=== PATIENT | male | born 1955 | race Caucasian/White ===

== ENCOUNTER → 2017-11-14 11:29 | Outpatient (CLI) | payer OTHER, SELFPAY ==
--- NOTE | 2017-11-14 11:35 | XR_ITS ---
XR chest 2V HISTORY: Hemoptysis, cough ITS.REASON: BRONCHITIS, ORDERING PHYSICIAN: Ricky Mauricio MD PATIENT AGE: 62 years COMPARISON: 221 FINDINGS: The cardiomediastinal silhouette and pulmonary vascularity are within normal limits. This consolidation is present in the left upper lobe consistent with pneumonia. No obvious effusion. Right lung is clear. No acute bony anomalies. IMPRESSION: Left upper lobe pneumonia. Recommend follow until clear
== END ==
PROVIDERS: PCP Family Medicine; Visit Provider Family Medicine
DX: J20.9 Acute bronchitis, unspecified (principal); R04.2 Hemoptysis
CPT/HCPCS: 71046

== ENCOUNTER → 2017-11-18 12:08 | Outpatient (CLI) | payer OTHER, SELFPAY ==
[2017-11-18 12:31] LABS: Blood Urea Nitrogen 21 mg/dL (7-18); Creatinine,Serum 1.15 mg/dL (0.70-1.30); Estimated Glomerular Filt Rate 65 ml/min (>60); GFR (African American) 78 ML/MIN (>60)
--- NOTE | 2017-11-18 12:34 | CT_ITS ---
CT angio chest HISTORY: Hemoptysis, left upper lobe pneumonia ITS.REASON: PNEUMONIA,LEFT UPPER LOBE ORDERING PHYSICIAN: Jose Rodgers MD PATIENT AGE: 62 years COMPARISON: 11/14/2017, 11/26/2010 TECHNIQUE: Axial images obtained following the administration of 75 mL of Isovue 370 . Sagittal, and coronal reformatted images are also generated and reviewed. All CT scans at the facility use one or more dose reduction, viz: automated exposure control, ma/kV adjustment per patient size (including targeted exams where dose is matched to indication, i.e. head), or iterative reconstruction technique. FINDINGS: There are scattered small lymph nodes in the left aspect of the mediastinum and left hilum. These are nonspecific and may be reactive has a densely consolidated left upper lobe pneumonia. The nodes measure up to 1.8 x 1 cm in AP window on the left. No mediastinal or hilar mass evident. No evidence of pulmonary embolus. No aortic aneurysm or dissection apparent. Dense consolidation involving the left upper lobe consistent with pneumonia. No obvious cavitation. No central bronchial obstruction. This also involves the posterior aspect of the lingula. There is a small left pleural effusion. Right lung is clear. Coronary artery calcifications are present. Upper abdominal images are unremarkable. No acute bony anomalies. IMPRESSION: 1. Left upper lobe pneumonia. No abscess or cavitation. No central obstructing lesion. There are small mediastinal lymph nodes on the left and small left hilar nodes which may be reactive. 2. No evidence of pulmonary embolus or aortic aneurysm or dissection.
--- NOTE | 2017-11-18 12:56 | HMH.ITSHM ---
BLOOD PRESSURE MEDS
== END ==
PROVIDERS: Visit Provider Family Medicine
DX: J18.1 Lobar pneumonia, unspecified organism (principal)
CPT/HCPCS: 36415; 71275; 82565; 84520; Q9967

== ENCOUNTER → 2017-11-28 12:54 | Outpatient (CLI) | payer OTHER, SELFPAY ==
--- NOTE | 2017-11-28 13:04 | XR_ITS ---
XR chest 2V HISTORY: ITS.REASON: PNEUMONIA ORDERING PHYSICIAN: Jose Rodgers MD PATIENT AGE: 62 years COMPARISON: 11/14/2017 FINDINGS: Unremarkable cardiovascular structures. There is been moderate improvement in the left upper lobe infiltrate. There is some residual density noted in the perihilar region. Right lung is clear. No acute bony anomalies. IMPRESSION: Persistent but improving left upper lobe infiltrate
== END ==
PROVIDERS: PCP Family Medicine; Visit Provider Family Medicine
DX: J18.1 Lobar pneumonia, unspecified organism (principal)
CPT/HCPCS: 71046

== ENCOUNTER → 2017-12-12 07:13 | Outpatient (CLI) | payer OTHER, SELFPAY ==
--- NOTE | 2017-12-12 07:23 | CA_ITS ---
PROCEDURE: 2-D M-mode and color Doppler study INDICATIONS FOR THE TEST: Chest pain COPD+ Heart Murmur Tobacco Smoking Palpitations Fatigue Syncope Edema+ Hypertension+Diabetes Mellitus Rheumatic Fever SOB+MARIE Obesity+Hyperlipidemia Family History HD Additional History PATIENT INFORMATION HEIGHT: 73 WEIGHT:370 GENDER: Male B/P: 2-D/M-MODE INTERPRETATION: 2-D MEASUREMENTS OBSERVED VALUES IN CMS Right Ventricular Dimension (RVDd) 2.2 Interventricular Septum (Thickness)(IVsd) 1.5 Left Ventricular Internal Dimensions(LVIDd) 5.6 Left Ventricular Posterior Wall (Thickness)(LVPWd) 1.4 Aortic Root 3.8 Aortic Cusp Separation 2.3 Left Atrial Dimensions (LAD) 4.3 2D 1. Left atrium is mildly enlarged, left ventricle is normal size, mild concentric left ventricular hypertrophy, visually estimated ejection fraction 55% with no regional wall motion abnormality. 2. The right atrium and right ventricle are normal size and contractility. 3. The aortic valve is minimally thickened and fibrosed. 4. The mitral and tricuspid valve are grossly normal. 5. The pulmonic valve is poorly visualized. 6. No significant pericardial effusion noted. DOPPLER INTERROGATION: Doppler interrogation of the aortic, mitral and tricuspid valvular presence of mild mitral and tricuspid regurgitation, tricuspid regurgitation jet velocity is insufficient for calculation of the right ventricular systolic pressure, grade 1 diastolic dysfunction seen with tissue Doppler evidence of raised left atrial pressure. CONCLUSION: 1. Mildly enlarged left atrium, normal left ventricular size, mild concentric left ventricular hypertrophy, visually estimated ejection fraction 55% with no regional wall motion abnormality. Grade 1 diastolic dysfunction seen with tissue Doppler evidence of raised left atrial pressure. 2. Mild mitral and tricuspid regurgitation 3. No significant pericardial effusion noted.
== END ==
PROVIDERS: Family Provider Family Medicine; PCP Family Medicine; Visit Provider Family Medicine
DX: R53.1 Weakness (principal)
CPT/HCPCS: 93306

== ENCOUNTER → 2017-12-23 13:34 | Outpatient (CLI) | payer OTHER, SELFPAY | PROVIDERS: PCP Family Medicine; Visit Provider Family Medicine | DX: G47.30 Sleep apnea, unspecified (principal) | CPT/HCPCS: 95806 ==

== ENCOUNTER → 2017-12-29 10:06 | Outpatient (CLI) | payer OTHER, SELFPAY ==
[2017-12-29 12:02] LABS: Anion Gap 10.9 mEq/L (5-15); Blood Urea Nitrogen 15 mg/dL (7-18); Calcium 8.7 mg/dL (8.5-10.1); Carbon Dioxide 30 mmol/L (21.0-32.0); Chloride 103 mmol/L (98-107); Creatinine,Serum 0.99 mg/dL (0.70-1.30); Estimated Glomerular Filt Rate 77 ml/min (>60); GFR (African American) 93 ML/MIN (>60); Glucose 170 mg/dL (74-106); Potassium 3.9 mmoL/L (3.5-5.1); Sodium 140 mmol/L (136-145)
== END ==
PROVIDERS: Visit Provider Internal Medicine Cardiovascular Disease
DX: I25.10 Atherosclerotic heart disease of native coronary artery without angina pectoris (principal); E66.9 Obesity, unspecified; I10 Essential (primary) hypertension; R25.1 Tremor, unspecified; R53.83 Other fatigue; R60.0 Localized edema; R94.31 Abnormal electrocardiogram [ECG] [EKG]; Z79.890 Hormone replacement therapy; Z82.49 Family history of ischemic heart disease and other diseases of the circulatory system; Z86.718 Personal history of other venous thrombosis and embolism
CPT/HCPCS: 36415; 80048; 83880

== ENCOUNTER → 2018-01-05 10:27 | Outpatient (CLI) | payer OTHER, SELFPAY ==
[2018-01-05 12:05] LABS: Blood Urea Nitrogen 17 mg/dL (7-18); Calcium 8.4 mg/dL (8.5-10.1); Carbon Dioxide 28 mmol/L (21.0-32.0); Chloride 105 mmol/L (98-107); Creatinine,Serum 0.84 mg/dL (0.70-1.30); Estimated Glomerular Filt Rate 93 ml/min (>60); GFR (African American) 113 ML/MIN (>60); Glucose 135 mg/dL (74-106); Sodium 141 mmol/L (136-145)
== END ==
PROVIDERS: Physician Assistant; Family Provider Family Medicine; PCP Family Medicine; Visit Provider Internal Medicine Cardiovascular Disease
DX: I10 Essential (primary) hypertension (principal); R06.09 Other forms of dyspnea; R60.0 Localized edema
CPT/HCPCS: 36415; 80048; 83880

== ENCOUNTER → 2018-03-31 19:43 | Outpatient (CLI) | payer OTHER, SELFPAY | PROVIDERS: PCP Family Medicine; Visit Provider Nurse Practitioner Family | DX: G47.33 Obstructive sleep apnea (adult) (pediatric) (principal) | CPT/HCPCS: 95811 ==

== ENCOUNTER → 2018-04-28 10:17 | Outpatient (CLI) | payer OTHER, SELFPAY ==
[2018-04-28 12:38] LABS: Anion Gap 11.6 mEq/L (5-15); Blood Urea Nitrogen 30 mg/dL (7-18); Carbon Dioxide 29 mmol/L (21.0-32.0); Chloride 100 mmol/L (98-107); Estimated Glomerular Filt Rate 76 ml/min (>60); GFR (African American) 92 ML/MIN (>60); Glucose 103 mg/dL (74-106); Potassium 4.6 mmoL/L (3.5-5.1); Sodium 136 mmol/L (136-145)
== END ==
PROVIDERS: PCP Family Medicine; Visit Provider Internal Medicine Cardiovascular Disease
DX: R00.1 Bradycardia, unspecified (principal); I10 Essential (primary) hypertension; I51.9 Heart disease, unspecified; E66.01 Morbid (severe) obesity due to excess calories; G47.33 Obstructive sleep apnea (adult) (pediatric); Z86.718 Personal history of other venous thrombosis and embolism
CPT/HCPCS: 36415; 80048

== ENCOUNTER → 2018-06-26 15:12 | Outpatient (CLI) | payer OTHER, SELFPAY | PROVIDERS: Visit Provider Specialist | DX: G47.33 Obstructive sleep apnea (adult) (pediatric) (principal) | CPT/HCPCS: 94762 ==

== ENCOUNTER → 2018-07-31 14:42 | Outpatient (CLI) | payer OTHER, SELFPAY ==
--- NOTE | 2018-07-31 14:47 | NVE_ITS ---
Venous Exam Indications: 729.5 Pain in limb. Pt hurt right foot last day now has palpable knot mid medial right foot. IMPRESSIONS 1. No evidence of deep or superficial vein thrombosis involving the right lower extremity 2. 0.9 cm hypoechoic non-vascular nodule seen in area of patient's palpable complaint right foot. History: PMH: Pt on Coumadin. Deep vein thrombosis. Risk factors: Obese. Right lower extremity venous duplex evaluation. Doppler flow study including spectral analysis, color and dorado scale imaging. Location: Vascular laboratory. Patient status: Outpatient. CRITICAL FINDINGS - Reported to: Dr. Richmond - 07/31/2018 - 15:15 pm - Neg. for DVT Tables: Venous flow and imaging: + + + + Location Overall Flow properties + + + + Right common femoral Patent Normal phasicity; spontaneous; normal augmentation; compressible + + + + Right saphenofemoral Patent Compressible junction + + + + Right profunda femoral Patent Compressible + + + + Right femoral Patent Normal phasicity; spontaneous; normal augmentation; compressible + + + + Right greater saphenous Patent Normal phasicity; spontaneous; normal augmentation; compressible + + + + Right popliteal Patent Normal phasicity; spontaneous; normal augmentation; compressible + + + + Right posterior tibial Patent Compressible + + + + Right peroneal Difficult Compressible study + + + + Right gastrocnemius Patent Compressible + + + + Right soleal Patent Compressible + + + + (Report amended ) Electronically signed by: Otis Jeronimo [id number]
== END ==
PROVIDERS: PCP Family Medicine; Visit Provider Family Medicine
DX: R60.0 Localized edema (principal); Z86.718 Personal history of other venous thrombosis and embolism
CPT/HCPCS: 93971

== ENCOUNTER → 2018-10-27 10:21 | Outpatient (CLI) | payer OTHER, SELFPAY ==
[2018-10-27 11:21] LABS: INR 1.89 (0.9-1.1); Prothrombin Time 19.1 seconds (9.4-11.8)
[2018-10-27 11:47] LABS: Anion Gap 10.3 mEq/L (5-15); Blood Urea Nitrogen 19 mg/dL (7-18); Calcium 8.6 mg/dL (8.5-10.1); Carbon Dioxide 30 mmol/L (21.0-32.0); Chloride 100 mmol/L (98-107); Creatinine,Serum 1.03 mg/dL (0.70-1.30); Estimated Glomerular Filt Rate 73 ml/min (>60); GFR (African American) 89 ML/MIN (>60); Glucose 98 mg/dL (74-106); Potassium 4.3 mmoL/L (3.5-5.1); Sodium 136 mmol/L (136-145)
== END ==
PROVIDERS: Visit Provider Internal Medicine Cardiovascular Disease
DX: I51.89 Other ill-defined heart diseases (principal); Z86.718 Personal history of other venous thrombosis and embolism
CPT/HCPCS: 36415; 80048; 85610

== ENCOUNTER → 2020-05-09 06:48 | Outpatient (CLI) | payer OTHER, SELFPAY ==
--- NOTE | 2020-05-09 | CA_ITS ---
APPROVED REPORT Exam: Pharmacologic Technologist: Emilee Bateman, Ht: 6 ft 0 in Wt: 314 lbs BSA: 2.58 m2 Medical History Medications: Lisinopril,,,,, Furosemide (LASIX),,,,, Warfarin,,,,, SyMBICORT,,,,, Cymbalta,,,,, Celecoxib,,,,, MetaPROLOL,,,,, Testosterone,,,,, Potassium,,,,, Stress Test Details Test: LEXISCAN HR Resting HR: 62 bpm Max Heart Rate (APMHR): 158 bpm Max HR Achieved: 93 bpm Target HR (85% APMHR): 134 bpm % of APMHR: 58 Recovery HR: 72 bpm BP Resting BP: 152/83 mmHg Max BP: 166/77 mmHg Recovery BP: 149.0/77.0 mmHg ECG Resting ECG: Sinus Rhythm Clinical Exercise duration: 04:00 min Highest Stage Achieved: Exercise capacity: 1.0 METs Stress ECG Conclusion Lexiscan portion complete. Pt c/o shortness of breath during peak infusion. Symptoms: No CP (+)SOB during peak infusion. Resolved in recovery Arrhythmias/Ectopy: No ectopy ST-T Changes: Less than 1.5 mm Conclusion: Images to follow Electronically signed by : Curt Contreras, 05/09/2020 13:25:36
--- NOTE | 2020-05-09 06:49 | CA_ITS ---
APPROVED REPORT EXAM: Comprehensive 2D, Doppler, and color-flow Echocardiogram Development And Planning Engineer: Robina Finnegan RVT Ht: 6 ft 1 in Wt: 314lbs BSA: 2.61 BP: 148/70 mmHg Indications: soa,cp,copd,murmur,edema,obesity,syncope,palps,dm,htn tds-body habitus 2D Dimensions LVOT 2.85 cm (M/F) 1.5-2.5 M-Mode Dimensions RVDd 1.70 cm (0.9-2.6) LA Diam 4.08 cm (1.9-4.0) LVDd 6.44 cm (3.5-5.7) Ao Diam 3.97 cm (2.0-3.7) LVDs 4.43 cm (3.5-5.7) IVSd 2.01 cm (0.6-1.1) PWd 0.72 cm (0.6-1.1) EF (Teich) 57.90% FS 31.20% EDV (Teich) 211.50 mL ESV (Teich) 89.10 mL LV Diastology E Decel Time 220.00 (160-240 msec) E/A Ratio 0.7 MED E' 7.00 (< 7 cm/sec) E'/MED E' Ratio 7.21 (>14) LAT E' 10.50 (<10 cm/sec) E/LAT E' Ratio 4.81 (>14) Mitral Valve MV E Max Marcio. 50.00 (40-130 cm/s) MV A Velocity 73.00 (40-130 cm/s) E/A Ratio 0.69 MV Decel. Time 220.00 (160-240 ms) MV PHT 64.00 ms Pulmonary Valve PV Peak Velocity 108.00 (50-150 cm/s) Left Ventricle Left atrium is mildly enlarged, left ventricle is normal size, mild concentric left ventricular hypertrophy, visually estimated ejection fraction 55% with no regional wall motion abnormality, grade 1 diastolic dysfunction seen without tissue Doppler evidence of raise left atrial pressure. Right Ventricle Right atrium and right ventricle mildly enlarged with normal contractility. Aortic Valve Aortic valve is minimally thickened and fibrosed, there is no aortic stenosis or aortic insufficiency. Mitral Valve Mitral valve leaflets are minimally thickened, there is mild mitral regurgitation. Tricuspid Valve Tricuspid valve grossly normal, there is mild tricuspid regurgitation, tricuspid regurgitation jet velocity is inadequate for calculation of the right ventricular systolic pressure. Pulmonic Valve Pulmonic valve is poorly visualized. Great Vessels Aortic root is normal size. Pericardium No significant pericardial effusion noted. Conclusion 1. Mild biatrial alignment, normal left ventricular size, mild concentric left ventricular hypertrophy, visually estimated ejection fraction 55% with no regional wall motion abnormality, grade 1 diastolic dysfunction seen without tissue Doppler evidence of raise left atrial pressure. 2. Mildly enlarged right ventricle with normal contractility. 3. Mild mitral and tricuspid regurgitation. 4. No significant pericardial effusion noted. Electronically signed by : Curt Contreras, 05/09/2020 14:38:05
--- NOTE | 2020-05-09 07:01 | NM_ITS ---
APPROVED REPORT Exam: Nuclear Stress Test Indication: HTN, OBSITY, FM HX, FATIGUE, ABN EKG Patient Location: Outpatient Stress Tech: GUZMAN BAZZI [place] Tech:Marisa Hagen, ARRT RT(R)(N) Ht: 6 ft 1 in Wt: 300 lbs HR: 68 bpm BP: 152/83 mmHg BSA: 2.56 m2 BMI: 39.5 History: HTN, OBSITY, FM HX, FATIGUE, ABN EKG Procedure: Patient received a 0.4 mg of intravenous Lexiscan, resting heart rate 68 bpm, resting blood pressure 152/83 mmHg, with Lexiscan maximum heart rate achived was 88 bpm which is Less than 85 % of the maximum predicted heart rate and blood pressure was 166/77 mmHg. With Lexiscan, patient denied any complaint of chest pain. Electrocardiogram Resting electrocardiogram showed sinus rhythm, with Lexiscan there is less than 1.[address] segment depression noted from the baseline EKG. The EKG portion of the Lexiscan is nondiagnostic. Cardiac Stress and Resting SPECT Images: Cardiac Stress and Resting SPECT images were obtained using technetium 99m Myoview 32.9 mCi stress and 9.72 mCi at rest. Gated SPECT for analysis of segmental wall motion and calculation of the ejection fraction also done. Prone images were also obtained. Cardiac stress and resting SPECT images show uniform myocardial activity without segmental perfusion abnormality, computer derived ejection fraction is 54% with no regional wall motion abnormality, right ventricle is normal size and contractility. Conclusion: 1. The EKG portion of the Lexiscan is nondiagnostic. 2. No scintigraphic evidence of reversible ischemia seen, computer derived ejection fraction 54% with no regional wall motion abnormality, right ventricle is normal size and contractility. 3. Normal Lexiscan Myoview study. Electronically signed by : Curt Contreras, 05/09/2020 13:31:43
== END ==
PROVIDERS: PCP Family Medicine; Visit Provider Internal Medicine Cardiovascular Disease
DX: I25.10 Atherosclerotic heart disease of native coronary artery without angina pectoris (principal); R94.31 Abnormal electrocardiogram [ECG] [EKG]; E78.2 Mixed hyperlipidemia; I10 Essential (primary) hypertension; Z86.718 Personal history of other venous thrombosis and embolism
CPT/HCPCS: 78452; 93017; 93306; A9502; J2785

== ENCOUNTER → 2020-07-30 08:33 | Outpatient (CLI) | payer OTHER, SELFPAY | PROVIDERS: PCP Family Medicine; Visit Provider Nurse Practitioner Family | DX: G47.33 Obstructive sleep apnea (adult) (pediatric) (principal) | CPT/HCPCS: 94762 ==

== ENCOUNTER → 2020-09-11 10:54 | Outpatient (CLI) | payer OTHER, SELFPAY | PROVIDERS: PCP Family Medicine; Visit Provider Nurse Practitioner Family | DX: G47.33 Obstructive sleep apnea (adult) (pediatric) (principal) | CPT/HCPCS: 94762 ==

== ENCOUNTER → 2021-04-13 10:06 | Outpatient (CLI) | payer OTHER, SELFPAY | PROVIDERS: PCP Psychiatry & Neurology Sleep Medicine; Visit Provider Nurse Practitioner | DX: U07.1 COVID-19 (principal) | CPT/HCPCS: C9803; U0003; U0005 ==

== ENCOUNTER → 2021-04-24 19:59 | Outpatient (CLI) | payer OTHER, SELFPAY | LOC: SL 20:00 | PROVIDERS: PCP Family Medicine; Visit Provider Nurse Practitioner Family | DX: G47.33 Obstructive sleep apnea (adult) (pediatric) (principal) | CPT/HCPCS: 95811 ==

== ENCOUNTER → 2021-06-05 07:31 | Outpatient (CLI) | payer OTHER, SELFPAY ==
--- NOTE | 2021-06-05 07:38 | XR_ITS ---
FINAL REPORT CLINICAL HISTORY: COVID TESTING cough COMPARISON: 11/28/2017 FINDINGS: SINGLE VIEW CHEST The heart is normal in size. The mediastinum is unremarkable. The lungs are clear. There is no pneumothorax. IMPRESSION: No acute cardiopulmonary process. Reviewed, Interpreted and Dictated by Royal Evangelista III, MD Transcribed by Vonda Clarke Authenticated by Royal Evangelista III, MD on 06/05/2021 08:46:[address] [facility]
[2021-06-05 07:59] LABS: Basophils # 0.1 K/mm3 (0-0.2); Basophils % 2.9 % (0.1-2.0); Eosinophils # 0.3 K/mm3 (0.0-0.4); Eosinophils % 5.7 % (0.1-12.0); Hematocrit 53.2 % (42.0-52.0); Hemoglobin 17.2 g/dL (14.1-18.0); Lymphocytes # 0.8 K/mm3 (0.7-4.5); Mean Corpuscular HGB Conc 32.3 g/dL (31.8-35.4); Mean Corpuscular Hemoglobin 29.3 pg (27.0-31.2); Mean Corpuscular Volume 90.7 fl (80-94); Mean Platelet Volume 7.2 fl (7.4-10.4); Monocytes # 0.3 K/mm3 (0.1-1.0); Monocytes % 5.9 % (1.7-9.3); Neutrophils % 67.5 % (37.0-80.0); Platelet Count 305 K/mm3 (142-424); Red Blood Count 5.86 M/mm3 (4.60-6.20); Red Cell Distribution Width 14.7 % (11.5-17.5); White Blood Count 4.5 K/mm3 (4.8-10.8)
== END ==
PROVIDERS: PCP Nurse Practitioner; Visit Provider Nurse Practitioner
DX: Z20.822 Contact with and (suspected) exposure to COVID-19 (principal)
CPT/HCPCS: 36415; 71045; 85025; C9803; U0003; U0005

== ENCOUNTER → 2022-02-09 08:18 | Outpatient (CLI) | payer OTHER, SELFPAY ==
[2022-02-10 11:10] LABS: INR 2.44 (0.9-1.1); Prothrombin Time 25.1 seconds (10.1-12.5)
[2022-02-10 11:55] LABS: Hemoglobin A1C 6.5 % (4.0-6.0)
[2022-02-10 12:24] LABS: Alanine Aminotransferase 31 U/L (12-78); Albumin Level 3.7 g/dl (3.5-5.0); Albumin/Globulin Ratio 1.5 (1.1-1.8); Alkaline Phosphatase 113 U/L (38-126); Aspartate Amino Transferase 25 U/L (17-59); Bilirubin,Total 0.4 mg/dl (0.2-1.3); Blood Urea Nitrogen 21 mg/dl (9-20); Calcium 8.9 mg/dl (8.4-10.2); Carbon Dioxide 28 mmol/L (22.0-30.0); Chloride 100 mmol/L (98-107); Chol/HDL Ratio 3.3 (1-3.5); Cholesterol 149 mg/dl (140-200); Estimated Glomerular Filt Rate 114 ml/min (>60); GFR (African American) 137 ML/MIN (>60); Globulin 2.5 g/dL (1.3-3.2); Glucose 131 mg/dl (74-100); HDL Cholesterol 45 mg/dl (40-60); Sodium 137 mmol/L (136-145); Total Protein,Serum 6.2 g/dl (6.3-8.2); Triglycerides 107 mg/dl (30-150); VLDL Cholesterol 21 mg/dL (0-40)
[2022-02-10 12:35] LABS: Direct LDL Cholesterol 74.27 mg/dL (100-129)
[2022-02-10 12:37] LABS: 25-OH Vitamin D, Total 44.1 ng/mL (30-100)
[2022-02-10 12:52] LABS: Prostate Specific Ag Screen 0.2 ng/ml (0.0-4.0)
[2022-02-10 13:11] LABS: Vitamin B12 910 pg/mL (239-931)
[2022-02-11 08:19] LABS: Testosterone,Total 131 ng/dL (264-916)
== END ==
LOC: LAB.DROPOF 02-10 11:18
PROVIDERS: PCP Nurse Practitioner; Visit Provider Nurse Practitioner
DX: I10 Essential (primary) hypertension (principal); E34.9 Endocrine disorder, unspecified; E78.2 Mixed hyperlipidemia; E55.9 Vitamin D deficiency, unspecified; E53.8 Deficiency of other specified B group vitamins; E66.01 Morbid (severe) obesity due to excess calories; Z68.42 Body mass index [BMI] 45.0-49.9, adult; Z86.718 Personal history of other venous thrombosis and embolism; Z12.5 Encounter for screening for malignant neoplasm of prostate
CPT/HCPCS: 80053; 80061; 82306; 82607; 83036; 84403; 85610; G0103

== ENCOUNTER → 2022-02-10 08:18 | Outpatient (CLI) | payer OTHER, SELFPAY | PROVIDERS: PCP Nurse Practitioner; Visit Provider Nurse Practitioner | DX: I10 Essential (primary) hypertension (principal); E78.5 Hyperlipidemia, unspecified; E53.8 Deficiency of other specified B group vitamins; E66.9 Obesity, unspecified; Z68.42 Body mass index [BMI] 45.0-49.9, adult; Z12.5 Encounter for screening for malignant neoplasm of prostate ==

== ENCOUNTER → 2022-05-11 23:00 | Outpatient (CLI) | payer OTHER, SELFPAY | PROVIDERS: PCP Family Medicine; Visit Provider Family Medicine | DX: Z79.01 Long term (current) use of anticoagulants (principal) ==

== ENCOUNTER → 2022-10-18 08:53 | Outpatient (CLI) | payer OTHER, SELFPAY ==
[2022-10-18 18:57] LABS: Alanine Aminotransferase 25 U/L (12-78); Albumin Level 3.9 g/dl (3.5-5.0); Albumin/Globulin Ratio 1.4 (1.1-1.8); Alkaline Phosphatase 102 U/L (38-126); Anion Gap 11.1 mEq/L (5-15); Aspartate Amino Transferase 27 U/L (17-59); Bilirubin,Total 0.9 mg/dl (0.2-1.3); Blood Urea Nitrogen 19 mg/dl (9-20); Calcium 8.8 mg/dl (8.4-10.2); Carbon Dioxide 28 mmol/L (22.0-30.0); Chloride 102 mmol/L (98-107); Chol/HDL Ratio 3.8 (1-3.5); Cholesterol 137 mg/dl (140-200); Estimated Glomerular Filt Rate 113 ml/min (>60); GFR (African American) 137 ML/MIN (>60); Globulin 2.7 g/dL (1.3-3.2); Glucose 95 mg/dl (74-100); HDL Cholesterol 36 mg/dl (40-60); Potassium 4.1 mmoL/L (3.5-5.1); Sodium 137 mmol/L (136-145); Total Protein,Serum 6.6 g/dl (6.3-8.2); Triglycerides 127 mg/dl (30-150); VLDL Cholesterol 25 mg/dL (0-40)
[2022-10-18 19:08] LABS: Direct LDL Cholesterol 75.93 mg/dL (100-129)
[2022-10-18 19:27] LABS: Thyroid Stimulating Hormone 1.52 uIU/mL (0.465-4.68)
== END ==
LOC: LAB.DROPOF 10-19 06:43
PROVIDERS: PCP Nurse Practitioner; Visit Provider Nurse Practitioner
DX: E11.9 Type 2 diabetes mellitus without complications (principal); I10 Essential (primary) hypertension; Z79.84 Long term (current) use of oral hypoglycemic drugs
CPT/HCPCS: 80053; 80061; 84443

== ENCOUNTER 2023-05-03 20:38 | Outpatient (CLI) | payer OTHER, SELFPAY ==
[2023-05-03 19:23] LABS: Chloride 100 mmol/L (98-107); Sodium 137 mmol/L (136-145)
[2023-05-03 19:24] LABS: Potassium 3.7 mmoL/L (3.5-5.1)
[2023-05-03 19:26] LABS: Alanine Aminotransferase 38 U/L (12-78); Anion Gap 9.7 mEq/L (5-15); Aspartate Amino Transferase 37 U/L (17-59); Blood Urea Nitrogen 20 mg/dl (9-20); Carbon Dioxide 31 mmol/L (22.0-30.0); Estimated Glomerular Filt Rate 97 ml/min (>60); GFR (African American) 117 ML/MIN (>60)
[2023-05-03 19:27] LABS: Albumin Level 3.8 g/dl (3.5-5.0); Albumin/Globulin Ratio 1.4 (1.1-1.8); Alkaline Phosphatase 89 U/L (38-126); Bilirubin,Total 0.3 mg/dl (0.2-1.3); Calcium 8.9 mg/dl (8.4-10.2); Globulin 2.7 g/dL (1.3-3.2); Glucose 83 mg/dl (74-100); Total Protein,Serum 6.5 g/dl (6.3-8.2)
== END 2023-05-03 23:59 ==
LOC: LAB.DROPOF 20:38
PROVIDERS: PCP Family Medicine; Visit Provider Family Medicine
DX: I10 Essential (primary) hypertension (principal); Z87.891 Personal history of nicotine dependence
CPT/HCPCS: 80053

== ENCOUNTER 2023-07-19 18:45 | Outpatient (CLI) | payer OTHER, SELFPAY ==
[2023-07-19 20:00] LABS: Alanine Aminotransferase 37 U/L (12-78); Albumin Level 3.8 g/dl (3.5-5.0); Albumin/Globulin Ratio 1.5 (1.1-1.8); Alkaline Phosphatase 95 U/L (38-126); Anion Gap 9.9 mEq/L (5-15); Aspartate Amino Transferase 84 U/L (17-59); Bilirubin,Total 0.6 mg/dl (0.2-1.3); Blood Urea Nitrogen 21 mg/dl (9-20); Calcium 9.2 mg/dl (8.4-10.2); Carbon Dioxide 30 mmol/L (22.0-30.0); Chloride 105 mmol/L (98-107); Chol/HDL Ratio 3.3 (1-3.5); Cholesterol 166 mg/dl (140-200); Estimated Glomerular Filt Rate 135 ml/min (>60); GFR (African American) 163 ML/MIN (>60); Globulin 2.6 g/dL (1.3-3.2); Glucose 112 mg/dl (74-100); HDL Cholesterol 51 mg/dl (40-60); Potassium 3.9 mmoL/L (3.5-5.1); Sodium 141 mmol/L (136-145); Total Protein,Serum 6.4 g/dl (6.3-8.2); Triglycerides 77 mg/dl (30-150); VLDL Cholesterol 15 mg/dL (0-40)
[2023-07-19 20:12] LABS: Direct LDL Cholesterol 69.59 mg/dL (100-129); Hemoglobin A1C 6.3 % (4.0-6.0)
[2023-07-19 20:31] LABS: Creatinine,Urine Random 146 mg/dL (Not Estab.)
[2023-07-19 20:32] LABS: Prostate Specific Ag Screen 0.2 ng/ml (0.0-4.0); Thyroid Stimulating Hormone 1.34 uIU/mL (0.465-4.68)
[2023-07-19 20:33] LABS: Microalbumin/Creatinine Ratio 4.4
[2023-07-19 20:51] LABS: Vitamin B12 660 pg/mL (239-931)
== END 2023-07-19 23:59 | disposition home or self-care (01) ==
PROVIDERS: PCP Nurse Practitioner; Visit Provider Nurse Practitioner
DX: E11.9 Type 2 diabetes mellitus without complications (principal); E66.01 Morbid (severe) obesity due to excess calories; Z79.01 Long term (current) use of anticoagulants; E55.9 Vitamin D deficiency, unspecified; E53.8 Deficiency of other specified B group vitamins; E78.2 Mixed hyperlipidemia; I10 Essential (primary) hypertension; Z86.718 Personal history of other venous thrombosis and embolism; Z12.5 Encounter for screening for malignant neoplasm of prostate; Z51.81 Encounter for therapeutic drug level monitoring; Z79.899 Other long term (current) drug therapy
CPT/HCPCS: 80053; 80061; 82043; 82306; 82570; 82607; 83036; 84443; G0103

== ENCOUNTER 2023-08-15 11:01 | Outpatient (CLI) | payer BC, SELFPAY | END 2023-08-15 23:59 | disposition home or self-care (01) | LOC: LAB.DROPOF 08-17 11:01 | PROVIDERS: PCP Nurse Practitioner; Visit Provider Nurse Practitioner | DX: E11.621 Type 2 diabetes mellitus with foot ulcer (principal); L97.519 Non-pressure chronic ulcer of other part of right foot with unspecified severity; B95.2 Enterococcus as the cause of diseases classified elsewhere | CPT/HCPCS: 87070; 87077; 87186; 87205 ==

== ENCOUNTER 2023-10-03 08:06 | Outpatient (CLI) | payer BC, SELFPAY ==
--- NOTE | 2023-10-03 08:08 | US_ITS ---
FINAL REPORT CLINICAL HISTORY: BILATERAL LE EDEMA,DECREASED SENESATION,EX SMOKER,HTN,DM,WOUND 2ND RIGHT DIGIT,OBESITY,DISCOLARTION BILATERAL FEET/ANKLES FINDINGS: ANKLE-BRACHIAL PRESSURE INDICES Pressure indices are as follows: RIGHT LOWER EXTREMITY: Ankle-brachial pressure index: 1.1 Comments: Normal LEFT LOWER EXTREMITY: Ankle-brachial pressure index: 1.1 Comments: Normal IMPRESSION: No evidence of significant obstructive peripheral vascular disease of the lower extremities Reviewed, Interpreted and Dictated by Royal Evangelista III, MD Transcribed by Yoly Okeefe Authenticated and . [facility]
== END 2023-10-03 23:59 | disposition home or self-care (01) ==
LOC: RT 08:08
PROVIDERS: PCP Family Medicine; Visit Provider Podiatrist
DX: R09.89 Other specified symptoms and signs involving the circulatory and respiratory systems (principal)
CPT/HCPCS: 93923

== ENCOUNTER 2023-11-22 10:24 | Outpatient (CLI) | payer BC, SELFPAY ==
[2023-11-22 10:47] LABS: Basophils # 0.1 K/mm3 (0-0.2); Basophils % 1.2 % (0.1-2.0); Eosinophils # 0.3 K/mm3 (0.0-0.4); Eosinophils % 5.7 % (0.1-12.0); Hemoglobin 15.5 g/dL (14.1-18.0); Lymphocytes # 1.2 K/mm3 (0.7-4.5); Lymphocytes % 20.6 % (10-50); Mean Corpuscular HGB Conc 31.6 g/dL (31.8-35.4); Mean Corpuscular Hemoglobin 28.6 pg (27.0-31.2); Mean Corpuscular Volume 90.3 fl (80-94); Mean Platelet Volume 7.5 fl (7.4-10.4); Monocytes # 0.2 K/mm3 (0.1-1.0); Neutrophils # 3.9 K/mm3 (1.8-7.8); Neutrophils % 68.5 % (37.0-80.0); Platelet Count 301 K/mm3 (142-424); Red Blood Count 5.43 M/mm3 (4.60-6.20); Red Cell Distribution Width 15.2 % (11.5-17.5); White Blood Count 5.7 K/mm3 (4.8-10.8)
[2023-11-22 11:10] LABS: Hemoglobin A1C 5.8 % (4.0-6.0)
[2023-11-22 11:44] LABS: Erythrocyte Sedimentation Rate 19 mm/hr (0-20)
[2023-11-22 11:48] LABS: Chloride 106 mmol/L (98-107); Sodium 139 mmol/L (136-145)
[2023-11-22 11:49] LABS: Potassium 4.3 mmoL/L (3.5-5.1)
[2023-11-22 11:51] LABS: Alanine Aminotransferase 30 U/L (12-78); Albumin/Globulin Ratio 1.4 (1.1-1.8); Alkaline Phosphatase 75 U/L (38-126); Anion Gap 9.3 mEq/L (5-15); Aspartate Amino Transferase 34 U/L (17-59); Bilirubin,Total 0.7 mg/dl (0.2-1.3); Blood Urea Nitrogen 18 mg/dl (9-20); Carbon Dioxide 28 mmol/L (22.0-30.0); Estimated Glomerular Filt Rate 135 ml/min (>60); GFR (African American) 163 ML/MIN (>60); Globulin 2.8 g/dL (1.3-3.2); Total Protein,Serum 6.8 g/dl (6.3-8.2)
[2023-11-22 11:52] LABS: Calcium 8.6 mg/dl (8.4-10.2); Glucose 96 mg/dl (74-100)
[2023-11-22 11:57] LABS: C-Reactive Protein 13.3 mg/L (0-4)
== END 2023-11-22 23:59 | disposition home or self-care (01) ==
LOC: LAB 10:25
PROVIDERS: PCP Family Medicine; Visit Provider Podiatrist
DX: R60.9 Edema, unspecified (principal)
CPT/HCPCS: 36415; 80053; 83036; 85025; 85651; 86140

== ENCOUNTER 2024-01-11 09:30 | Outpatient (CLI) | payer BC, SELFPAY | END 2024-01-11 23:59 | disposition home or self-care (01) | LOC: LAB.DROPOF 01-12 09:31 | PROVIDERS: PCP Family Medicine; Visit Provider Podiatrist | DX: L60.0 Ingrowing nail (principal); L03.031 Cellulitis of right toe | CPT/HCPCS: 87070; 87077; 87186; 87205 ==

== ENCOUNTER 2024-01-17 09:30 | Outpatient (CLI) | payer BC, SELFPAY ==
[2024-01-17 19:16] LABS: Albumin Level 4.2 g/dl (3.5-5.0); Chloride 104 mmol/L (98-107); Sodium 139 mmol/L (136-145)
[2024-01-17 19:19] LABS: Alanine Aminotransferase 31 U/L (12-78); Albumin/Globulin Ratio 1.4 (1.1-1.8); Alkaline Phosphatase 86 U/L (38-126); Aspartate Amino Transferase 28 U/L (17-59); Bilirubin,Total 0.7 mg/dl (0.2-1.3); Blood Urea Nitrogen 19 mg/dl (9-20); Carbon Dioxide 29 mmol/L (22.0-30.0); Cholesterol 167 mg/dl (140-200); Estimated Glomerular Filt Rate 113 ml/min (>60); GFR (African American) 137 ML/MIN (>60); Globulin 2.9 g/dL (1.3-3.2); Total Protein,Serum 7.1 g/dl (6.3-8.2); Triglycerides 79 mg/dl (30-150); VLDL Cholesterol 16 mg/dL (0-40)
[2024-01-17 19:20] LABS: Calcium 9.2 mg/dl (8.4-10.2); Chol/HDL Ratio 3.3 (1-3.5); Glucose 82 mg/dl (74-100); HDL Cholesterol 51 mg/dl (40-60)
[2024-01-17 19:31] LABS: Direct LDL Cholesterol 76.53 mg/dL (100-129)
[2024-01-17 19:40] LABS: 25-OH Vitamin D, Total 52.5 ng/mL (30-100)
== END 2024-01-17 23:59 | disposition home or self-care (01) ==
LOC: LAB.DROPOF 01-19 11:39
PROVIDERS: PCP Nurse Practitioner; Visit Provider Nurse Practitioner
DX: E55.9 Vitamin D deficiency, unspecified (principal); E11.65 Type 2 diabetes mellitus with hyperglycemia; Z79.85 Long-term (current) use of injectable non-insulin antidiabetic drugs; Z79.01 Long term (current) use of anticoagulants; E78.5 Hyperlipidemia, unspecified
CPT/HCPCS: 80053; 80061; 82306

== ENCOUNTER 2024-03-19 06:06 | Outpatient (CLI) | payer BC, SELFPAY ==
--- NOTE | 2024-03-19 | CA_ITS ---
APPROVED REPORT Exam: Pharmacologic Technologist: Emilee Wilkerson Ht: 6 ft 3 in Wt: 342 lbs BSA: 2.76 m2 HR: 68 bpm BP: 162/90 mmHg Stress Test Details Test: Lexiscan Reason for pharmacologic stress test: physical limitation. HR Resting HR: 68 bpm Max Heart Rate (APMHR): 154.569981 bpm Max HR Achieved: 87 bpm Target HR (85% APMHR): 130.098081 bpm % of APMHR: 56.49 Recovery HR: 83 bpm BP Resting BP: 162.0/90.0 mmHg Max BP: 157.0/86.0 mmHg Recovery BP: 157.0/86.0 mmHg ECG Resting ECG: NSR Stress ECG Conclusion Symptoms: No CP Arrhythmias/Ectopy: None ST-T Changes: <1.5mm ST Segment changes. Conclusion: Non-Diagnostic Lexiscan stress test. Electronically signed by : Pat Ha MD 03/19/2024 11:39:37
--- NOTE | 2024-03-19 06:12 | NM_ITS ---
APPROVED REPORT Exam: Nuclear Stress Test Indication: htn, diabetes, hyperlipidemia, fm hx, pre-op Patient Location: Outpatient Stress Tech: Emilee Bateman [place] Tech:ROMMEL Vaughan RT (R)(N)(M) Ht: 6 ft 1 in Wt: 342 lbs HR: 68 bpm BP: 162/90 mmHg BSA: 2.70 m2 TID: 1.19 BMI: 45.1 History: htn, diabetes, hyperlipidemia, fm hx, pre-op Procedure: Patient received 0.0 mg of intravenous Lexiscan, resting heart rate 68 bpm, resting blood pressure 162/90 mmHg, with Lexiscan maximum heart rate achieved was 87 bpm which is % of the maximum predicted heart rate and blood pressure was 154/92 mmHg. With Lexiscan, patient denied any complaint of chest pain. Cardiac Stress and Resting SPECT Images: Cardiac Stress and Resting SPECT images were obtained using technetium 99m Myoview 29.4 mCi stress and 10.20 mCi at rest. The patient could not lie on his abdomen. Therefore, prone stress imaging could not be performed. This may affect the diagnostic interpretation of the study findings. Resting and stress imaging in supine positions demonstrate a medium sized, mild, partially reversible perfusion defect in the basal inferior LV wall. Gated imaging demonstrates normal global and regional LV systolic function. LVEF is calculated at 58%. Conclusion: Medium sized, mild, partially reversible perfusion defect in the basal inferior LV wall. Findings are suggestive of partial reversible ischemia. Gated imaging demonstrates normal global and regional LV systolic function. LVEF is calculated at 58%. Electronically signed by : Pat Ha MD 03/19/2024 11:41:14
[2024-03-19] MEDS: SODIUM CHLORIDE 0.9% 10ML SYR (RAD ONLY) 10 ML IV ×2 (06:30→08:30)
[2024-03-19] MEDS: REGADENOSON 0.4MG/5ML SYRINGE 0.4 MG IV (08:30)
[2024-03-19] MEDS: ISOTOPE MYOVIEW (PER STUDY) 1 DOSE IV (11:26)
== END 2024-03-19 23:59 | disposition home or self-care (01) ==
LOC: RAD 06:07
PROVIDERS: PCP Psychiatry & Neurology Sleep Medicine; Visit Provider Physician Assistant
DX: I25.10 Atherosclerotic heart disease of native coronary artery without angina pectoris (principal)
CPT/HCPCS: 78452; 93017; 93018; A9502; J2785

== ENCOUNTER 2024-04-03 08:37 | Day surgery (SDC) | payer BC, SELFPAY ==
[2024-04-03] VITALS (10 sets, daily range): BP systolic 114–153; BP diastolic 60–83; PULSE 60–77; RESP 16–20; O2SAT 95–97; BMI 43.6
--- NOTE | 2024-04-03 07:26 | IR_ITS ---
APPROVED REPORT Patient Location: Outpatient PROCEDURES Left heart catheterization Left ventriculogram Selective coronary angiogram INDICATION Preoperative evaluation, Abnormal Myoview, Angina pectoris Informed consent was obtained prior to the procedure. COMPLICATIONS None Estimated Blood Loss: Less than 10 mls TECHNIQUE One percent lidocaine used to anesthetize the right anterior aspect of the wrist. The right radial artery was accessed via the Seldinger technique. A 6 Pashto sheath was placed in the right radial artery. 2.5 mg of Verapamil, 800 mcg of nitroglycerin, 1mg Lidocaine and 5000 U Heparin were given through the arterial sheath. The papa catheter was also used to perform left heart catheterization, left ventriculogram and selective coronary angiogram. At the end of the procedure the sheath was removed good hemostasis was achieved using Traclet band, patient was transferred to the postop holding area in stable condition. ANGIOGRAPHIC RESULTS The left main artery Normal The left anterior descending artery Mild 10% luminal regularities The circumflex artery Dominant with 20% stenosis in the first obtuse marginal artery The right coronary artery Normal The EARL ventriculogram reveals Horizontal heart with normal ejection fraction estimate 65% The left ventricular end-diastolic pressure 20 to 25 mmHg IMPRESSION Mild nonflow limiting coronary disease as described above Normal ejection fraction Elevated LVEDP consistent diastolic dysfunction PLAN 1. Patient is alone acceptable risk to proceed with elective orthopedic surgery 2. Risk factor modification 3. Recommend exercise weight loss 4. Recommend sleep study Electronically signed by : Dale Sauer MD 04/03/2024 13:49:43
[2024-04-03 09:15] LABS: Basophils % 0.7 % (0.1-2.0); Eosinophils # 0.3 K/mm3 (0.0-0.4); Eosinophils % 4.6 % (0.1-12.0); Hematocrit 47.1 % (42.0-52.0); Hemoglobin 15.7 g/dL (14.1-18.0); Lymphocytes # 1.1 K/mm3 (0.7-4.5); Lymphocytes % 19.1 % (10-50); Mean Corpuscular HGB Conc 33.3 g/dL (31.8-35.4); Mean Corpuscular Volume 87.1 fl (80-94); Mean Platelet Volume 8.3 fl (7.4-10.4); Monocytes # 0.3 K/mm3 (0.1-1.0); Monocytes % 5.3 % (1.7-9.3); Neutrophils % 70.1 % (37.0-80.0); Platelet Count 249 K/mm3 (142-424); Red Blood Count 5.41 M/mm3 (4.60-6.20); Red Cell Distribution Width 13.8 % (11.5-17.5); White Blood Count 5.7 K/mm3 (4.8-10.8)
--- NOTE | 2024-04-03 09:15 | SUR.PREOP ---
Notified lab for need of INR drawn
[2024-04-03 09:42] LABS: INR 0.96 (0.9-1.1); Prothrombin Time 10.8 seconds (10.1-12.5)
[2024-04-03 10:03] LABS: Chloride 103 mmol/L (98-107); Sodium 133 mmol/L (136-145)
[2024-04-03 10:06] LABS: Blood Urea Nitrogen 19 mg/dl (9-20); Calcium 8.8 mg/dl (8.4-10.2); Carbon Dioxide 26 mmol/L (22.0-30.0); Creatinine Clearance Estimated 84 mL/min (50-200); Estimated Glomerular Filt Rate 135 ml/min (>60); GFR (African American) 163 ML/MIN (>60); Glucose 100 mg/dl (74-100)
[2024-04-03] MEDS: NITROGLYCERIN 800MCG/8ML SYR (CATH LAB) 800 MCG IA (10:32)
[2024-04-03] MEDS: HEPARIN 1,000 UNITS/ML 10ML VIAL (CATH LAB) 10000 UNIT IV (10:32)
[2024-04-03] MEDS: VERAPAMIL 2.5MG/ML 2ML VIAL 2.5 MG IV (10:32)
[2024-04-03] MEDS: HEPARIN 1,000 UNITS/500ML NS (CATH LAB) 3000 UNIT IV (10:32)
[2024-04-03] MEDS: LIDOCAINE 1% 10ML MDV 20 ML IJ (10:33)
[2024-04-03] MEDS: diphenhydrAMINE 50MG/ML VIAL 50 MG IV (10:33)
[2024-04-03] MEDS: MIDAZOLAM HCL 1MG/ML 5ML VIAL 1 MG IV (10:52)
[2024-04-03] MEDS: FENTANYL 100MCG/2ML VIAL 50 MCG IV (10:52)
[2024-04-03] MEDS: IOPAMIDOL-370 (76%);100ML BOTTLE 85 ML IV (12:39)
== END 2024-04-03 13:39 | disposition home or self-care (01) ==
PROVIDERS: PCP Family Medicine; Visit Provider Internal Medicine
DX: I25.118 Atherosclerotic heart disease of native coronary artery with other forms of angina pectoris (principal); I10 Essential (primary) hypertension; E11.9 Type 2 diabetes mellitus without complications; R94.39 Abnormal result of other cardiovascular function study; E55.9 Vitamin D deficiency, unspecified; Z79.85 Long-term (current) use of injectable non-insulin antidiabetic drugs; Z79.899 Other long term (current) drug therapy; Z86.718 Personal history of other venous thrombosis and embolism; Z79.01 Long term (current) use of anticoagulants
CPT/HCPCS: 36415; 80048; 85025; 85610; 93458; 99152; C1725; C1769; J1200; J1644; J2250; J3010; Q9967

== ENCOUNTER 2024-10-29 10:37 | Outpatient (CLI) | payer BC, MEDICARE, SELFPAY ==
--- OUTSIDE RECORDS SUMMARY | 2024-09-28 09:00 | XMS_ITS | Encounter Summary ---
Author Organization [facility] Address [address] [place] [address] Care Team Providers Care Still Operator Name Role Phone Phan Rodgers MD Primary Care Provider [phone] Francisco Bolton MD Unavailable [phone] Elen Taylor MD Unavailable [phone] Reason for Visit * Reason Comments Follow-up Encounter Details Date Type Department Care Team (Late st Contact Info) Description 09/28/2024 9:00 AM EDT Office Visit [facility] [address] [address] Tiesha Saleem NP [address] [place] [address] Primary osteoarthritis of right knee (Primary Dx) Social History Tobacco Use Types Packs/Day Years Used Date Smoking Tobacco: Former Cigarettes Q uit: 12/03/1997 Smokeless Tobacco: Never Tobacco Cessation:Counseling Given: Not Answered Alcohol Use Standard Drinks/Week Comments No 0 (1 standard drink = 0.6 oz pur e alcohol) Sexually Active Control Partners Comments Yes Abstinence Female Sex and Gender Information Value Date Recorded Sex Assigned at Not on file Legal Sex Male 1:21 AM EDT Gender Identity Not on file Sexual Orientation Not on file documented as of this encounter Last Filed Vital Signs Vital Sign Reading Time Taken Comments Blood Pressure - - Pulse - - Temperature - - Respiratory Rate - - Oxygen Saturation - - Inhaled Oxygen Concentration - - Weight 154.2 kg (340 lb) 09/28/2024 8:46 AM EDT Height 185.4 cm (6' 1 ) 09/28/2024 8:46 AM EDT Body Mass Index 44.86 09/28/2024 8:46 AM EDT documented in this encounter Progress Notes * Tiesha Saleem NP - 09/28/2024 9:00 AM EDTAssociated Order(s): Large Joint Injection/Arthrocentesis: R knee Post-Procedure Diagnose(s): Primary osteoarthritis of right knee Large Joint Injection/Arthrocentesis: R knee on 09/28/2024 9:00 AM Indications: pain Details: 22 G needle, superolateral approach Medications: 2 mL BUPivacaine HCl 0.5 % (5 mg/mL); 40 mg triamcinolone acetonide 40 mg/mL Outcome: tolerated well, no immediate complications Procedure, treatment alternatives, risks and benefits explained, specific risks discussed. Consent was given by the patient. Immediately prior to procedure a time out was called to verify the correctpatient, procedure, equipment, data support analyst and site/side marked as required. Patient was prepped and draped in the usual sterile fashion. * Tiesha Saleem NP - 09/28/2024 9:00 AM EDT Images from the original note were not included. [address] [phone] [place], [place] [phone] [place], [place] Eusebio Chun 1955 Chief Complaint Patient presents with Right Knee - Follow-up Subjective: Eusebio Chun is a 69 y.o. male is presenting today for repeat evaluation of right knee OA. History left total knee arthroplasty 04-19-24. This is doing well. Reports relief with previous cortisone injection of the knee on last OV 06-22-24 Relief has worn off and pain has returned, especially with increased physical activity. 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 The injections help keep him functional. Objective: Review of Systems Constitutional: Negative. Respiratory: Negative. Cardiovascular: Negative. Gastrointestinal: Negative. Musculoskeletal: Positive for joint pain. Skin: Negative. Body mass index is 44.86 kg/m??. On physical examination the patient is alert and oriented x3. Appropriate mood for the conversation. Well-developed and well-nourished in appearance. Gait examination reveals no obvious abnormalities. Skin of bilateral upper and lower extremities with no obvious rash or lesions. Motor control intact of the bilateral upper and lower extremities. No evidence of obvious lymphedema of bilateral lowerextremities. Respiratory rate is normal by clinical examination. Pulse rate is normal by peripheral pulse examination. Examination of the right knee shows that it is stable to varus/valgus stressing. Normal anterior/posterior drawer testing. Normal Sharron testing. Normal Pihl testing. There is tenderness to palpation over the medial joint line, as well as the patellofemoral joint. The skin is intact. Imaging: None today. Assessment and Plan: Diagnoses and all orders for this visit: Primary osteoarthritis of right knee - Large Joint Injection/Arthrocentesis: R knee PLAN: Recommended to continue conservative management Discussed options Keep follow-up as scheduled to determine response. If good symptomatic relief is achieved, patient may schedule for repeat injection in 3 months if needed. Patient agreeable and all questions answered. A right knee corticosteroid injection was given today. Under sterile conditions and from a superolateral approach, a local anesthetic and steroid were injected into the knee joint. This was well tolerated by the patient. Sterile dressings were applied. There were no obvious immediate complications after the procedure. I discussed with the patient about monitoring for pain, as well as the standard expectation after an injection. Patient was educated on the signs or symptoms of complication and will monitor for these. documented in this encounter Plan of Treatment Upcoming Encounters Date Type Department Care Team (Late st Contact Info) Description 01/04/2025 8:00 AM EDT Office Visit [facility] [address] [address] Tiesha Saleem NP [address] [place] [address] 10/08/2025 8:00 AM EDT Office Visit [facility] [address] [place], [place] [id number] Francisco Bolton MD 651 [facility] Building [address] [place] [address] documented as of this encounter Procedures Procedure Name Priority Date/Time Associated Diagnosis Comments LA ARTHROCENTESIS ASPIR&/INJ MAJOR JT/BURSA W/O US Routine 09/28/2024 9:00 AM EDT Primary osteoarthritis of right knee documented in this encounter Results * LA ARTHROCENTESIS ASPIR&/INJ MAJOR JT/BURSA W/O US (09/28/2024 9:00 AM EDT) Narrative [facility] - 09/28/2024 9:00 AM EDT Tiesha Saleem NP 09/28/2024 9:01 AM Large Joint Injection/Arthrocentesis: R knee on 09/28/2024 9:00 AM Indications: pain Details: 22 G needle, superolateral approach Medications: 2 mL BUPivacaine HCl 0.5 % (5 mg/mL); 40 mg triamcinolone acetonide 40 mg/mL Outcome: tolerated well, no immediate complications Procedure, treatment alternatives, risks and benefits explained, specific risks discussed. Consent was given by the patient. Immediately prior to procedure a time out was called to verify the correct patient, procedure, equipment, data support analyst and site/side marked as required. Patient was prepped and draped in the usual sterile fashion. us Tiesha Saleem NP PROCEDURE/MINOR SURGICAL ORDERAB LES Final Result [facility] documented in this encounter Visit Diagnoses Diagnosis Primary osteoarthritis of right knee- Primary Primary localized osteoarthrosis, lower leg documented in this encounter Administered Medications Inactive Administered Medications - up to 1 most recent administrations Medication Order MAR Action Action Date Dose Rate Site BUPivacaine HCl (MARCAINE/SENSORCAINE) 0.5 % (5 mg/mL) injection 2 mL 2 mL, Intra-articular, ONCE PRN, 1 dose, Starting on Tue09/28/24 at 0900, Until Tue09/28/24 at 0900, Dx: 1. Primary osteoarthritis of right kneeIndications:Primary osteoarthritis of right knee Given 09/28/2024 9:00 AM EDT 2 mL Right Knee triamcinolone acetonide (KENALOG-40) injection 40 mg 40 mg, Intra-articular, ONCE PRN, 1 dose, Starting on Tue09/28/24 at 0900, Until Tue09/28/24 at 0900, Dx: 1. Primary osteoarthritis of right kneeIndications:Primary osteoarthritis of right knee Given 09/28/2024 9:00 AM EDT 40 mg Right Knee documented in this encounter Care Teams Still Operator Relationship Specialty Start Date End Date Phan Rodgers MD [address] [place] [address] [address] [place] [address] PCP - General 01/19/11 Francisco Bolton MD [address] [address] Internal Medicine-Rheumatolog y 02/20/18 Elen Taylor MD [address] [place] [address] Consulting Physician Internal Medicine-Endocrinolo gy, Diabetes & Metabolism 06/01/22 documented as of this encounter
--- OUTSIDE RECORDS SUMMARY | 2024-10-08 08:00 | XMS_ITS | Encounter Summary ---
Author Organization [facility] [place] [address] Care Team Providers Care Patrol Commander Name Role Phone Phan Rodgers MD Primary Care Provider Francisco Bolton MD Unavailable [phone] Elen Taylor MD Unavailable [phone] Reason for Visit * Reason Comments Follow-up 9 mthsPrimary osteoa rthritis of both kneesChronic deep vein thrombosis (DVT) of distal vein of right lower extremity (HCC)Radicular pain of lumbosacral regionTherapeutic drug monitoring Encounter Details Date Type Department Care Team (Latest Contact Info) Description 10/08/2024 8:00 AM EDT Office Visit [facility] [address] [place] [address] Francisco Bolton MD 651 [facility] [address] [place] [address] Primary osteoarthritis of both knees (Primary Dx); Radicular pain of lumbosacral region; Chronic deep vein thrombosis (DVT) of distal vein of right lower extremity (HCC); Therapeutic drug monitoring Discharge Disposition: Home or Self Care Social History Tobacco Use Types Packs/Day Years Used Date Smoking Tobacco: Former Cigarettes Q uit: 12/03/1997 Smokeless Tobacco: Never Alcohol Use Standard Drinks/Week Comments No 0 [...] Sign Reading Time Taken Comments Blood Pressure 137/79 10/08/2024 7:53 AM EDT Pulse 73 10/08/2024 7:53 AM EDT Temperature - - Respiratory Rate 16 10/08/2024 7:53 AM EDT Oxygen Saturation - - Inhaled Oxygen Concentration - - Weight 161.9 kg (357 lb) 10/08/2024 7:53 AM EDT Height - - Body Mass Index 47.1 09/28/2024 8:46 AM EDT documented in this encounter Ordered Prescriptions Prescription Sig Dispense Quantity Refills Last Filled Start Date End Date gentamicin (GARAMYCIN) 0.1 % Top Cream Apply topically 3 times daily. 30 g 10/08/2024 diclofenac (VOLTAREN) 1 % Top Gel Apply 4 g topically 4 times daily. 5 Each 5 10/08/2024 DULoxetine (CYMBALTA) 60 mg Oral Capsule, Delayed Release(E.C.)Indicat ions:Primary osteoarthritis of both knees Take 1 Capsule by mouth daily. 30 Capsule 3 10/08/2024 documented in this encounter Discharge Disposition Disposition Code Departure Means Destination Home or Self Care documented in this encounter Progress Notes * Francisco Bolton MD - 10/08/2024 8:00 AM EDT Subjective Subjective: Patient ID: Eusebio Chun is a 69 y.o. male. Chief Complaint Patient presents with Follow-up 9 mths Primary osteoarthritis of both knees Chronic deep vein thrombosis (DVT) of distal vein of right lower extremity (HCC) Radicular pain of lumbosacral region Therapeutic drug monitoring Follow-up Osteoarthritis Back Pain Hip Pain Abstract Mr. Chun had right total hip arthroplasty on 12/22/22. The right hip pain has resolved. He had lefttotal knee arthroplasty on 04/19/2024. The left knee pain has dramatically improved. He is also noted decreased pain at the right knee. He currently rates the pain at the right and left knee as mild intensity. He previously rated the pain as moderate-severe intensity. Walking does worsen the knee pain. He recently had right intra-articular steroid injection from orthopedic surgeon. The intra-articular steroid injections do reduce the pain transiently. He continues to use Cymbalta daily. He feelsthe Cymbalta has reduced the overall joint pain. Voltaren gel also helps. He previously lost 104 pounds. He regained about 80 pounds total. He previously lost a significant amount of weight using Saxenda. However, his insurance is no longer covering Saxenda. He is now using Mounjaro. He previously stopped Celebrex but restarted the medication due to the severity of the knee pain. Mr. Chun previously had swelling and erythema at the dorsum of the right foot and at the 2nd and 3rd toes of the right foot. His clinical pathologist prescribed topical gentamicin 0.1% cream which did help clear the redness and swelling. He recently noticed return of the erythema and swelling at the right foot 2nd and 3rd toes. He is requesting a refill of gentamicin cream. Patients past medical, family and social histories were reviewed and updated. There were no changesexcept as noted. Review of Systems See attached Multi-Dimensional Health Assessment Questionnaire for full Review of Systems Objective Objective: Vitals: 10/08/24 0753 BP: 137/79 Pulse: 73 Resp: 16 Weight: (!) 357 lb (161.9 kg) Body mass index is 47.1 kg/m??. Physical Exam Constitutional: Appearance: He is well-developed. Musculoskeletal: Comments: Heberden's nodes noted at fingers of both hands. Crepitus right knee. Scar at the left knee. No synovitis. Skin: Findings: No rash. Comments: Erythema at right 2nd and 3rd toes. Minimal amount of clear weeping from the dorsum of the right third toe. No obvious ulcers. Neurological: Mental Status: He is alert. Psychiatric: Thought Content: Thought content normal. CBC Lab Results Component Value Date WBC 4.8 12/10/2022 HGB 14.7 12/10/2022 HCT 44.4 12/10/2022 MCV 85.9 12/10/2022 PLT 219 12/10/2022 CMP Lab Results Component Value Date GLU 107 (H) 12/10/2022 CALCIUM 9.1 12/10/2022 ALBUMIN 3.9 12/10/2022 PROT 6.5 12/10/2022 NA 139 12/10/2022 K 4.2 12/10/2022 CO2 25 12/10/2022 CL 103 12/10/2022 BUN 20 12/10/2022 CREATININE 0.83 12/10/2022 ALKPHOS 83 12/10/2022 ALT 22 12/10/2022 AST 18 12/10/2022 LABBILI 0.5 12/10/2022 Assessment and Plan: Eusebio was seen today for follow-up. The OA is better but still active. Exam showed degenerative joint changes. Exam showed erythema, swelling, and clear drainage at right 2nd and 3rd toes. The most recent lab testing showed normal liver enzymes and kidney function. Diagnoses and all orders for this visit: Primary osteoarthritis of both knees - Active. Previously improved with weight loss, Voltaren gel and Cymbalta. Left total hip arthroplasty on 04/19/2024. He has noted significant reduction of the knee pain. - Intra-articular steroid injections initially helped significantly. - Dr. Vazquez previously requested he lose 100 pounds. - Mr. Chun previously lost enough weight to allow him to have the total knee replacements. - Mr. Chun was concerned about time away from work if he has knee surgery. - He previously used Celebrex 200 mg BID. - He was able to reduce Celebrex to 200 mg QD after starting Cymbalta. - Right total hip arthroplasty on 12/22/22. - Left total knee arthroplasty on 04/19/2024. - The OA is improved but still active. - He is currently using Celebrex 200 mg daily. - Continue Cymbalta 60 mg daily. - Continue Tylenol rapid release 1000 mg twice daily. He rarely uses Tylenol. - Continue Voltaren gel 4 g 4 times daily. - Continue Salonpas lidocaine patches. - Previously discussed acupuncture. - Previously discussed physical therapy. Mr. Chun wants to wait. - CBC and CMP 2 weeks before follow-up visit. - Follow-up in 12 months. - His insurance refused to cover cost of Euflexxa. - Mr. Chun previously paid for the cost of Euflexxa [id number]. - We again discussed my concern about using Celebrex while using Coumadin. Right buttock pain - Improved. Concerning for referred pain. - No improvement with previous right hip intra-articular steroid injection. - Salonpas OTC lidocaine patches PRN. - Continue Cymbalta 60 mg daily. - Continue Tylenol rapid release 1000 mg twice daily. He rarely uses Tylenol. - Continue Voltaren gel 4 g 4 times daily. - If the pain returns we will refer to the [facility]. Right foot cellulitis - Previously resolved with topical gentamicin from podiatry. - Mr. Chun requested another prescription of gentamicin cream. - We discussed my concern for the area of cellulitis progressing to involve underlying structures including the bone. - I prescribed gentamicin 0.1% 3 times daily to the affected area. - If the area is not significantly improved within 5-7 days he will return to podiatry. Chronic deep vein thrombosis (DVT) of distal vein of right lower extremity (HCC) - Developed right leg DVT during his early 50s. - Using lifelong Coumadin. Morbid obesity due to excess calories (HCC) - Active problem. - He previously lost 104 pounds but regained a significant amount. - He is trying to lose additional weight. Therapeutic drug monitoring - Currently using Coumadin and Celebrex. - He previously used Celebrex 200 mg BID. - He stopped Celebrex but developed severe knee pain. - He restarted Celebrex at 200 mg QD. - He will continue to lose weight. - We will see if we can stop Celebrex next visit. No follow-ups on file. documented in this encounter Plan of Treatment Upcoming Encounters Date Type Department Care Team (Late st Contact Info) Description 01/04/2025 8:00 AM EDT Office Visit [facility] [address] [address] Tiesha Saleem NP [address] [place] [address] 10/08/2025 8:00 AM EDT Office Visit [facility] [address] [place] [address] [place] [address] Francisco Bolton MD 651 [facility] [address] [place] [address] documented as of this encounter Visit Diagnoses Diagnosis Primary osteoarthritis of both knees- Primary Primary localized osteoarthrosis, lower leg Radicular pain of lumbosacral region Thoracic or lumbosacral neuritis or radiculitis, unspecified Chronic deep vein thrombosis (DVT) of distal vein of right lower extremity (HCC) Therapeutic drug monitoring Encounter for therapeutic drug monitoring documented in this encounter Discontinued Medications Medication Sig Discontinue Reason Start Date End Da te diclofenac (VOLTAREN) 1 % Top Gel Apply 4 g topically 4 times daily. Reorder 11/08/2022 10/08/2024 DULoxetine (CYMBALTA) 60 mg Oral Capsule, Delayed Release(E.C.)Indications: Primary osteoarthritis of both knees Take 1 Capsule by mouth once daily. Reorder 02/07/2024 10/08/2024 documented as of this encounter Historical Medications * This list may reflect changes made after this encounter. MOUNJARO 7.5 mg/0.5 mL SubQ Pen Injector INJECT 7.5 MG UNDER THE SKIN ONCE WEEKLY. 10/01/2024 added in this encounter Care Teams Patrol Commander Relationship Specialty Start Date End Date Phan Rodgers MD [address] [place] [address] [address] [place] [address] PCP - General 01/19/11 Francisco Bolton MD 651 [facility] [address] [place] [address] Internal Medicine-Rheumatolog y 02/20/18 Elen Taylor MD [address] [place] [address] Consulting Physician Internal Medicine-Endocrinolo gy, Diabetes & Metabolism 06/01/22 documented as of this encounter
--- NOTE | 2024-10-29 10:41 | XR_ITS ---
FINAL REPORT CLINICAL HISTORY: Right ankle pain and swelling FINDINGS: AP, oblique, and lateral views of the right ankle were obtained. There is an age-indeterminate fracture of the tip of the medial malleolus. There is degenerative joint disease. There is diffuse soft tissue e edema. IMPRESSION: Age-indeterminate fracture of the tip of the medial malleolus. Consider MRI. Reviewed, Interpreted and Dictated by Rosey Kumar MD Transcribed by SUZANNA Delacruz Authenticated and [facility]
--- NOTE | 2024-10-29 10:41 | XR_ITS ---
FINAL REPORT CLINICAL HISTORY: Right Foot pian and swelling FINDINGS: AP, oblique and lateral views of the right foot were obtained. There is no acute fracture or dislocation. There is mild multijoint degenerative disease. There is mild soft tissue edema of the midfoot and forefoot. IMPRESSION: Mild multijoint degenerative findings without acute osseous abnormality. Reviewed, Interpreted and Dictated by Rosey Kumar MD Transcribed by SUZANNA Delacruz Authenticated and [facility]
--- OUTSIDE RECORDS SUMMARY | 2024-10-29 11:10 | XMS_ITS | Clinical Summary ---
Author Organization [facility] Address [address] [place] [address] Care Team Providers Care Popcorn Vendor Name Role Phone Phan Rodgers MD Primary Care Provider [phone] Allergies Active Allergy Reactions Criticality Noted Date Comments Metformin Other (See Comments) 04/11/2024 Stomach cramping Medications metoprolol succinate (TOPROL) 25 mg XL tablet Take 25 mg by mouth nightly at bedtime. Active furosemide (LASIX) 80 mg tablet Take 80 mg by mouth daily. Active losartan (COZAAR) 25 mg Tablet Take 25 mg by mouth daily. Active semaglutide (Ozempic) 1 mg/dose (4 mg/3 mL) Pen Injector 1 mg by Subcutaneous route once weekly. Takes on Sundays Active rosuvastatin (CRESTOR) 10 mg Tablet Take 10 mg by mouth daily. Active warfarin (COUMADIN) 5 mg tablet Take 10 mg by mouth every other day. Alternates dose Active warfarin (COUMADIN) 5 mg tablet Take 7.5 mg by mouth every other day. Alternates dose Active gabapentin (NEURONTIN) 300 mg capsule Take 300 mg by mouth nightly at bedtime. Active DULoxetine (CYMBALTA) 60 mg Capsule, Delayed Release(E.C.) Take 60 mg by mouth daily. Active Diclofenac Sodium (VOLTAREN) 1 % Gel Apply topically 4 times daily. Active celecoxib (CELEBREX PO) Take by mouth daily. Active docusate sodium (COLACE) 100 mg capsule Take 1 Capsule (100 mg) by mouth 2 times daily as needed for Constipation. 30 Capsule 04/19/2024 2:45 PM EST Active Active Problems Problem Noted Date Diagnosed Date Primary osteoarthritis of left knee 04/11/2024 Family History Medical History Relation Name Comments Heart Problems Father CHF Heart Problems Maternal Grandfather Heart Problems Paternal Grandfather Anesthesia Complications Neg Hx Relation Name Status Comments Father Maternal Grandfather Paternal Grandfather Social History Tobacco Use Types Packs/Day Years Used Date Smoking Tobacco: Former Cigarettes 1 25 1 974 - 1999 Smokeless Tobacco: Never Tobacco Cessation:Counseling Given: Not Answered Alcohol Use Standard Drinks/Week Comments Not Currently 0 (1 standard drink = 0.6 oz pur e alcohol) Quit ~1981 Sex and Gender Information Value Date Recorded Sex Assigned at Male 04/13/2024 10:13 AM EST Legal Sex Male 3:05 PM EDT Gender Identity Male 04/13/2024 10:13 AM EST Sexual Orientation Not on file Last Filed Vital Signs Vital Sign Reading Time Taken Comments Blood Pressure 161/78 04/19/2024 1:00 PM EST Pulse 83 04/19/2024 1:00 PM EST Temperature 36.1 C (96.9 F) 04/19/2024 12:45 PM EST Respiratory Rate 16 04/19/2024 1:00 PM EST Oxygen Saturation 95% 04/19/2024 1:00 PM EST Inhaled Oxygen Concentration - - Weight 156.5 kg (345 lb 0.3 oz) 04/19/2024 8:48 AM EST Height 185.4 cm (6' 1 ) 04/19/2024 8:48 AM EST Body Mass Index 45.52 04/19/2024 8:48 AM EST Plan of Treatment Health Maintenance Due Date Last Done Comments Cologuard 1957 Colonoscopy 1957 Colorectal Cancer Screening 1957 FIT 1957 Lipid Monitoring 1974 Hepatitis C Virus (HCV) Screening 1978 Pneumococcal Vaccine: 50+ Ye ars (1 of 1 - PCV) 07/16/2007 Zoster-RZV(Shingrix) (1 of 2) 07/16/2007 RSV Vaccines (1 - Risk 60-74 years 1-dose series) 2017 Fall Risk Assessment 2022 COVID-19 Vaccine ( season) 2023, 12/02/2020 Advance Care Planning 04/04/2024 BMI Counseling 04/04/2024 Depression Screening 04/04/2024 Influenza Vaccination (#1) 2024 Tetanus Vaccination (Every 10 Years) 06/09/202611/2016 Medical Devices Implanted Type Area Application Programmer Analyst Device Identifier Shelf Expiration Date Model / Serial / Lot Attune Tib Base Afxm Fxd Bear Sz 7 - [id number] Implanted:Qty: 1 on 04/19/2024 by Giles Robledo MD at [facility] Left: Knee [employer] \T\ [employer] [id number] 05/04/2032 [id number] / / [id number] Attune Pat Med Estefany 35mm - [id number] Implanted:Qty: 1 on 04/19/2024 by Giles Robledo MD at [facility] Left: Knee [employer] \T\ [employer] [id number] 03/03/2029 [id number] / / [id number] Attune Fem Pcr Sz 7 Lt - [id number] Implanted:Qty: 1 on 04/19/2024 by Giles Robledo MD at [facility] Left: Knee [employer] \T\ [employer] [id number] 02/01/2034 [id number] / / [id number] Attune Tib Ins Fxd Bearing Med Stbld Sz 7 Lt 5mm - [id number] Implanted:Qty: 1 on 04/19/2024 by Giles Robledo MD at [facility] Left: Knee [employer] \T\ [employer] [id number] 01/02/2032 [id number] / / [id number] Cement Bone Simplex Hv - [id number] Implanted:Qty: 1 on 04/19/2024 by Giles Robledo MD at [facility] Left: Knee [employer] [id number] 09/01/2025 [id number] / / [id number] Knee Attune Fb Cementless - [id number] Implanted:Qty: 1 on 04/19/2024 by Giles Robledo MD at [facility] Left: Knee [employer] \T\ [employer] [id number] / / Insurance [facility] MEDIC[facility] Member Subscriber Plan / Payer (Ef fective 2022-Present) Name:Eusebio Ford Aidan Member ID:[id number] Relation to Subscriber:Self Name:Eusebio Ford Aidan Subscriber ID:[id number] Payer ID:[id number] Group ID:Not on file Type:Medicare Address: [facility] [place] [address] [facility] [place] [address] [place] [place] [address] Care Teams Popcorn Vendor Relationship Specialty Start Date End Date Phan Rodgers MD [address] [facility] [address] [place] [address] PCP - General Neurology 04/13/24
--- OUTSIDE RECORDS SUMMARY | 2024-10-29 11:10 | XMS_ITS | Clinical Summary ---
Author Organization [facility] Address [address] [place] [address] Phone Care Team Providers Care Medical Assistant Prn Name Role Phone Phan Rodgers MD Primary Care Provider [phone] Francisco Bolton MD Unavailable [phone] Elen Taylor MD Unavailable Allergies Active Allergy Reactions Criticality Noted Date Comments Metformin Nausea Only,Other (S ee Comments) 07/30/2022 Abdominal cramps Stomach cramping Medications fUROsemide (LASIX) 80 mg Oral Tablet Take 80 mg by mouth every 12 hours. Active metoprolol (LOPRESSOR) 25 mg tablet Take 12.5 mg by mouth 2 times daily. 1/2 pill twice a day Active gabapentin (NEURONTIN) 300 mg Oral Capsule Take 300 mg by mouth nightly. Active rosuvastatin (CRESTOR) 10 mg Oral Tablet Take 10 mg by mouth daily. Active warfarin (COUMADIN) 5 mg Oral TabletIndications: WILL STOP FOR SX 12/14/22 Indications: WILL STOP FOR SX 12/14/22 3 Active cyanocobalamin 100 mcg Oral Tablet Take 100 mcg by mouth daily. Active MOUNJARO 7.5 mg/0.5 mL SubQ Pen Injector INJECT 7.5 MG UNDER THE SKIN ONCE WEEKLY. 5 Active DULoxetine (CYMBALTA) 60 mg Oral Capsule, Delayed Release(E.C.)Indic ations:Primary osteoarthritis of both knees Take 1 Capsule by mouth daily. 30 Capsule 3 5 Active diclofenac (VOLTAREN) 1 % Top Gel Apply 4 g topically 4 times daily. 5 Each 5 5 Active gentamicin (GARAMYCIN) 0.1 % Top Cream Apply topically 3 times daily. 30 g 5 Active Active Problems Problem Noted Date Diagnosed Date Primary osteoarthritis of left knee 04/17/2024 Right hip pain 12/15/2022 Primary osteoarthritis of right hip 10/27/2022 Overview (10/27/2022): Added automatically from request for surgery [id number] Prediabetes 06/01/2022 Assessment & Plan (11/09/2022 12:44 PM EDT): Glycemic control has improved with weight loss. The patient has lost 12% of the total body weight. Rybelsus at current dose regimen has been shown to have very limited impact on weight control. I feel that the patient would benefit from weight loss surgery in light of multiple comorbidities related to morbid obesity. He was advised to have evaluation for possible weight loss surgery before considering knee replacement. Different aspects of weight loss surgery (gastric bypass versus gastric sleeve) were discussed with the patient in detail. I explained the benefits versus risks of bariatric surgery and the impact on sustained weight loss. The patient is aware of health benefits of weight loss surgery such as average 20 to 30% total body weight loss, improvement of metabolic parameters and favorable effect on comorbidities including arthritis. Assessment & Plan (07/30/2022 12:23 PM EDT): The patient has lost 5% of the total body weight on Saxenda. He is to continue with dietary intervention along with Saxenda. Unfortunately he could not tolerate metformin. We will monitor the metabolic parameters Assessment & Plan (06/01/2022 12:16 PM EST): The importance of balanced caloric intake and increased physical activity to reduce the risk of developing of type 2 diabetes mellitus was emphasized to the patient. We will decide on either GLP-1 RA or metformin trial depending on insurance coverage Hypogonadism male 06/01/2022 Assessment & Plan (11/09/2022 12:42 PM EDT): The patient has been off testosterone replacement due to lack of perceived benefit. Assessment & Plan (07/30/2022 12:22 PM EDT): Under care of PCP Dr. Rodgers Assessment & Plan (06/01/2022 12:15 PM EST): Under care of PCP Dr. Rodgers Open displaced fracture of distal phalanx of lef t thumb 12/31/2021 Overview (12/31/2021): Added automatically from request for surgery [id number] Radicular pain of lumbosacral region 12/10/2021 Primary osteoarthritis of both knees 02/22/2018 Chronic deep vein thrombosis (DVT) of distal vein of right lower extremity 02/22/2018 Class 3 severe obesity due t o excess calories with serious comorbidity and body mass index (BMI) of 40.0 to 44.9 in adult 02/22/2018 Assessment & Plan (11/09/2022 12:45 PM EDT): Unfortunately weight loss medications are not covered under his current insurance plan. He is to continue with a lifestyle intervention. He was provided with the samples of Rybelsus since he is convinced that it has helped with weight loss. Assessment & Plan (07/30/2022 12:22 PM EDT): The patient is to continue Saxenda samples at 1.2 mg a day. He is to continue with dietary intervention. We will try to submit prescription for Saxenda for approval Assessment & Plan (06/01/2022 12:18 PM EST): The importance of increased physical activity and balanced caloric intake to facilitate weight loss was emphasized to the patient. The patient was provided with dietary instructions. He is to keep a detailed food diary. He was advised to see dietitian. Different aspects of weight loss surgery (gastric bypass versus gastric sleeve) were discussed with the patient in detail. I explained the benefits versus risks of bariatric surgery and the impact on sustained weight loss. The patient is aware of health benefits of weight loss surgery such as average 20 to 25% total body weight loss, improvement of metabolic parameters and favorable effect on comorbidities. I feel that he would benefit from being evaluated at bariatric center. In the meantime he was provided with a list of different weight loss medications to contact the insurance company regarding the coverage. We will consider metformin trial if GLP-1 RA are not covered. 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 06/15/2016 Encounters Date Type Department Care Team Description 10/08/2024 8:00 AM EDT Office Visit [facility] [address] [facility] [address] [place] [address] Francisco Bolton MD Primary osteoarthritis of both knees (Primary Dx); Radicular pain of lumbosacral region; Chronic deep vein thrombosis (DVT) of distal vein of right lower extremity (HCC); Therapeutic drug monitoring Discharge Disposition: Home or Self Care 09/28/2024 9:00 AM EDT Office Visit [facility] [address] [facility] [address] [place] [address] Tiesha Saleem NP Primary osteoarthritis of right knee (Primary Dx) 08/24/2024 9:00 AM EDT Office Visit [facility] [address] [facility] [address] [place] [address] Tiesha Saleem NP S/P total knee arthroplasty, left (Primary Dx) from Last 3 Months Immunizations Immunization Administration Dates Next Due Tdap 06/09/2016 Surgical History Surgery Date Site/Laterality Comments FINGER AMPUTATION 06/15/2016 Finger/Left LEFT LONG FINGER REPAIR AMPUTATION WITH V-Y FLAP; Surgeon: Josue Tejada MD; Location: [facility]; Service: Hand SKIN GRAFT 06/15/2016 Finger/Left Surgeon: Josue Tejada MD; Location: [facility]; Service: Hand FINGER NAIL SURGERY 09/23/2016 Left LEFT LONG FINGER EXCISION OF THE NAIL AND NAILBED REMNANT; Surgeon: Josue Tejada MD; Location: [facility]; Service: Hand FINGER FRACTURE SURGERY 01/05/2022 Hand/Wrist/Left left thumb exploration irrigation and debridement of open fracture open reduction internal fixation distal phalanx; Surgeon: Antelmo Stock MD; Location: [facility] MAIN OR; Service: Hand Medical devices from this surgery are in the Medical Devices section. HIP ARTHROPLASTY 12/22/2022 Hip/Right RIGHT TOTAL HIP REPLACEMENT; Surgeon: Dale Vazquez MD; Location: [facility]; Service: Orthopedics Medical devices from this surgery are in the Medical Devices section. Medical History Medical History Date Comments Prediabetes Hypertension Chronic bronchitis (HCC) no inha lers Pneumonia hx of DVT (deep venous thrombosis) (HCC) rt leg Kidney stones at age 29 History of snoring Blood circulation, collateral le gs Arthritis knees Sleep apnea BIPAP Hyperlipidemia Diabetes mellitus (HCC) Depression Clotting disorder Family History Medical History Relation Name Comments Heart Disease Father hear valve rep lacement Heart Failure Father Cancer Mother breast Anesth Problems Neg Hx Relation Name Status Comments Father Mother Alive Social History Tobacco Use Types Packs/Day Years [...] on file Sexual Orientation Not on file Obstetrics History Last Filed Vital Signs Vital Sign Reading Time Taken Comments Blood Pressure 137/79 10/08/2024 7:53 AM EDT Pulse 73 10/08/2024 7:53 AM EDT Temperature 35.8 C (96.4 F) 12/22/2022 3:39 PM EDT Respiratory Rate 16 10/08/2024 7:53 AM EDT Oxygen Saturation 97% 12/22/2022 3:39 PM EDT Inhaled Oxygen Concentration - - Weight 161.9 kg (357 lb) 10/08/2024 7:53 AM EDT Height 185.4 cm (6' 1 ) 09/28/2024 8:46 AM EDT Body Mass Index 47.1 09/28/2024 8:46 AM EDT Plan of Treatment Upcoming Encounters Date Type Department Care Team (Late st Contact Info) Description 01/04/2025 8:00 AM EDT Office Visit [facility] [address] [place], [place] [id number] Tiesha Saleem NP [address] [place], [place] [id number] 10/08/2025 8:00 AM EDT Office Visit [facility] [address] [facility] [address] [place], [place] [id number] Francisco Bolton MD [address] [facility] [address] [place], [place] [id number] Health Maintenance Due Date Last Done Comments Annual Wellness Exam 1960 Hepatitis C Screening 07/16/1975 Cologuard 2002 Colon Cancer Screening 2002 Colonoscopy 2002 FIT 2002 Sigmoidoscopy 2002 Virtual Colonography 2002 Zoster (1 of 2) 07/16/2007 RSV or 60+ (1 - Ris k 60-74 years 1-dose series) 2017 Pneumococcal Vaccine 50+ (2 of 2 - PCV) 11/22/2018 11/22/2017 AAA Screening 2022 COVID-19 Vaccine (3 - 2023-2 5 season) 2023 12/30/2020, 12/02/2020 Influenza Vaccine (#1) 2024 DTaP/TDaP/Td (2 - Td or Tdap) 06/09/2026 06/09/2016 Hepatitis B Vaccine Aged Out No longe r eligible based on patient's age to complete this topic Meningococcal B Vaccine Aged Out No l onger eligible based on patient's age to complete this topic Medical Devices Implanted Type Area Writer Device Identifier Shelf Expiration Date Model / Serial / Lot Wire David [id number] [employer] [facility] Dbl End Troc Pnt - [id number] Implanted:Qty: 2 on 01/05/2022 by Antelmo Stock MD at [facility] MICROAIRE SURG INSTR 05/30/2025 1600-022 / / [id number] Cup Actb Trident Ii Sz-E 52mm Clstr Scr 5hl Tritan Hap Prim - [id number] Implanted:Qty: 1 on 12/22/2022 by Dale Vazquez MD at [facility] Right: Hip DENNIS:[employer] [id number] 11/16/2027 702-04-52E / / [id number] Insert O Degree Trident X 3 36mm Code E - [id number] Implanted:Qty: 1 on 12/22/2022 by Dale Vazquez MD at [facility] Right: Hip [employer]IS[employer] [id number] 09/28/2027 723-00-36E / / [id number] Stem Sz6 45mm Ofst Accolade Ii Prim Recon Ti Plasm [employer] - [id number] Implanted:Qty: 1 on 12/22/2022 by Dale Vazquez MD at [facility] Right: Hip [employer] [id number] 11/22/2027 [id number] / / [id number] Head Fem V-40 36mm +0mm Nk Biolox Delta Cerm Tapr Prim Mod - [id number] Implanted:Qty: 1 on 12/22/2022 by Dale Vazquez MD at [facility] Right: Hip [employer] [id number] 07/01/2027 6570-0-136 / / [id number] Procedures Procedure Name Priority Date/Time Associated Diagnosis Comments ME ARTHROCENTESIS ASPIR&/INJ MAJOR JT/BURSA W/O US Routine 09/28/2024 9:00 AM EDT Primary osteoarthritis of right knee from Last 3 Months Results * ME ARTHROCENTESIS ASPIR&/INJ MAJOR JT/BURSA W/O US (09/28/2024 [...] to verify the correct patient, procedure, equipment, operations support professionals and site/side marked as required. Patient was prepped and draped in the usual sterile fashion. us Tiesha Saleem NP PROCEDURE/MINOR SURGICAL ORDERAB LES Final Result ORTHOCINCY from Last 3 Months Insurance [facility] [place]IC[place] [address] [facility] [employer] PPO MEDICARE [place] PART A AND B [place] [id number] [employer] PPO [place] [address] Care Teams Medical Assistant Prn Relationship Specialty Start Date End Date Phan Rodgers MD [address] [facility] [address] [place] [id number] PCP - General 01/19/11 Francisco Bolton MD [address] [address] Internal Medicine-Rheumatolog y 02/20/18 Elen Taylor MD [address] [place] [address] Consulting Physician Internal Medicine-Endocrinolo gy, Diabetes & Metabolism 06/01/22
== END 2024-10-29 23:59 | disposition home or self-care (01) ==
PROVIDERS: PCP Family Medicine; Visit Provider Nurse Practitioner
DX: M19.071 Primary osteoarthritis, right ankle and foot (principal); M84.471A Pathological fracture, right ankle, initial encounter for fracture
CPT/HCPCS: 73610; 73630

== ENCOUNTER 2024-11-15 16:18 | Outpatient (CLI) | payer BC, MEDICARE, SELFPAY ==
--- OUTSIDE RECORDS SUMMARY | 2024-09-28 09:00 | XMS_ITS | Encounter Summary ---
Author Organization [facility] Address [address] [place] [address] Care Team Providers Care Finance Broker Name Role Phone Phan Rodgers MD Primary Care Provider [phone] Francisco Bolton MD Unavailable [phone] Elen Taylor MD Unavailable [phone] Reason for Visit * Reason Comments Follow-up Encounter Details Date Type Department Care Team (Late st Contact Info) Description 09/28/2024 9:00 AM EDT Office Visit [facility] [address] [address] Tiesha Saleem NP [address] [place] [address] Primary osteoarthritis of right knee (Primary Dx) [...] called to verify the correctpatient, procedure, equipment, web support engineer and site/side marked as required. Patient was prepped and draped in the usual sterile fashion. * Tiesha Saleem NP - 09/28/2024 9:00 AM EDT Images from the original note were not included. [address] [phone]) [place], [place] [phone]) [place], [place] Eusebio Chun 1955 Chief Complaint Patient [...] with increased physical activity. 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 [...] anterior/posterior drawer testing. Normal Sharron testing. Normal Phil testing. There is tenderness to palpation over [...] Office Visit [facility] [address] [address] Tiesha Saleem NP [address] [place] [address] 10/08/2025 8:00 AM EDT Office Visit [facility] [address] [place], [place] [id number] Francisco Bolton MD 651 [facility] Building [address] [place] [address] documented as of this encounter Procedures Procedure Name Priority Date/Time Associated Diagnosis Comments NM ARTHROCENTESIS ASPIR&/INJ MAJOR JT/BURSA W/O US Routine 09/28/2024 9:00 AM EDT Primary osteoarthritis of right knee documented in this encounter Results * NM ARTHROCENTESIS ASPIR&/INJ MAJOR JT/BURSA W/O US (09/28/2024 [...] to verify the correct patient, procedure, equipment, web support engineer and site/side marked as required. Patient was [...] Knee documented in this encounter Care Teams Finance Broker Relationship Specialty Start Date End Date Phan Rodgers MD [address] [address] [address] [place] [address] PCP - General 01/19/11 Francisco Bolton MD [address] [address] Internal Medicine-Rheumatolog y 02/20/18 Elen Taylor MD [address] [place] [address] Consulting Physician Internal Medicine-Endocrinolo gy, Diabetes & Metabolism 06/01/22 documented as of this encounter
--- OUTSIDE RECORDS SUMMARY | 2024-10-08 08:00 | XMS_ITS | Encounter Summary ---
Author Organization [facility] [place] [address] Care Team Providers Care Cooker Loader Name Role Phone Phan Rodgers MD Primary Care Provider Francisco Bolton MD Unavailable [phone] Elen Taylor MD Unavailable [phone] Reason for Visit * Reason Comments Follow-up 9 mthsPrimary osteoa rthritis of both kneesChronic deep vein thrombosis (DVT) of distal vein of right lower extremity (HCC)Radicular pain of lumbosacral regionTherapeutic drug monitoring Encounter Details Date Type Department Care Team (Latest Contact Info) Description 10/08/2024 8:00 AM EDT Office Visit [facility] [address] [place] [address] Francisco Bolton MD 651 [facility] Building [address] [place] [address] Primary osteoarthritis of both knees [...] 3rd toes of the right foot. His fishing game warden prescribed topical gentamicin 0.1% cream which did [...] previously paid for the cost of Euflexxa [id number]. - We again discussed my concern about [...] pain returns we will refer to the [facility]. Right foot cellulitis - Previously resolved with [...] AM EDT Office Visit [facility] [address] [address] Tiesha Saleem NP [address] [place] [address] 10/08/2025 8:00 AM EDT Office Visit [facility] [address] [facility] [address] [place] [address] Francisco Bolton MD 651 [facility] [address] [place] [address] documented as of this encounter Visit Diagnoses [...] 10/01/2024 added in this encounter Care Teams Cooker Loader Relationship Specialty Start Date End Date Phan Rodgers MD [address] [place] [address] [address] [place] [address] PCP - General 01/19/11 Francisco Bolton MD 651 [facility] [address] [place] [address] Internal Medicine-Rheumatolog y 02/20/18 Elen Taylor MD [address] [place] [address] Consulting Physician Internal Medicine-Endocrinolo gy, Diabetes & Metabolism 06/01/22 documented as of this encounter
--- OUTSIDE RECORDS SUMMARY | 2024-11-15 16:20 | XMS_ITS | Clinical Summary ---
Author Organization [facility] Address [address] [place] [address] Phone Care Team Providers Care Um Nurse Name Role Phone Phan Rodgers MD Primary Care Provider [phone] Francisco Bolton MD Unavailable [phone] Elen Taylor MD Unavailable [phone] Allergies Active Allergy Reactions Criticality Noted Date [...] (10/27/2022): Added automatically from request for surgery [id number] Prediabetes 06/01/2022 Assessment & Plan (11/09/2022 12:44 [...] (12/31/2021): Added automatically from request for surgery [id number] Radicular pain of lumbosacral region 12/10/2021 Primary [...] Encounters Date Type Department Care Team Description 11/07/2024 Refill [facility] [address] [place] [address] Francisco Bolton MD Medication Refill 11/01/2024 Refill [facility] [place] [address] Francisco Bolton MD Medication Refill 10/08/2024 8:00 AM EDT Office Visit [facility] [place] [address] [place] [address] Francisco Bolton MD Primary osteoarthritis of both knees (Primary Dx); Radicular pain of lumbosacral region; Chronic deep vein thrombosis (DVT) of distal vein of right lower extremity (HCC); Therapeutic drug monitoring Discharge Disposition: Home or Self Care 09/28/2024 9:00 AM EDT Office Visit [address] [address] Tiesha Saleem NP Primary osteoarthritis of right knee (Primary Dx) 08/24/2024 9:00 AM EDT Office Visit [facility] [address] [address] Tiesha Saleem NP S/P total knee arthroplasty, left (Primary Dx) from Last 3 Months Immunizations Immunization Administration Dates Next Due Tdap 06/09/2016 Surgical History Surgery Date Site/Laterality Comments FINGER AMPUTATION 06/15/2016 Finger/Left LEFT LONG FINGER REPAIR AMPUTATION WITH V-Y FLAP; Surgeon: Josue Tejada MD; Location: [facility]; Service: Hand SKIN GRAFT 06/15/2016 Finger/Left Surgeon: Josue Tejada MD; Location: [facility]; Service: Hand FINGER NAIL SURGERY 09/23/2016 Left LEFT LONG FINGER EXCISION OF THE NAIL AND NAILBED REMNANT; Surgeon: Josue Tejada MD; Location: [facility]; Service: Hand FINGER FRACTURE SURGERY 01/05/2022 Hand/Wrist/Left left thumb exploration irrigation and debridement of open fracture open reduction internal fixation distal phalanx; Surgeon: Antelmo Stock MD; Location: [facility] MAIN OR; Service: Hand Medical devices from this surgery are in the Medical Devices section. HIP ARTHROPLASTY 12/22/2022 Hip/Right RIGHT TOTAL HIP REPLACEMENT; Surgeon: Dale Vazquez MD; Location: [facility] MAIN OR; Service: Orthopedics Medical devices from this surgery are in the Medical Devices section. Medical History Medical History Date Comments Prediabetes Hypertension Chronic bronchitis (HCC) no inha lers Pneumonia hx of DVT (deep venous thrombosis) ([facility]) rt leg Kidney stones at age 29 [...] 8:00 AM EDT Office Visit [facility] [address] [place] [address] Tiesha Saleem NP 2626 [facility], [place] [id number] 10/08/2025 8:00 AM EDT Office Visit [facility] [address] [facility] [address] [place] [address] Francisco Bolton MD 651 [facility] Building [address] [place] [address] Health Maintenance Due Date Last Done Comments [...] this topic Medical Devices Implanted Type Area Temporary Office Assistant Device Identifier Shelf Expiration Date Model / Serial / Lot Wire David 0.783jpz2.5in Microaire Smth Dbl End Troc Pnt - [id number] Implanted:Qty: 2 on 01/05/2022 by Antelmo Stock MD at [facility] MICROAIRE SURG INSTR 05/30/2025 1600-022 / / [id number] Cup Actb Trident Ii Sz-E 52mm Clstr Scr 5hl Tritan Hap Prim - [id number] Implanted:Qty: 1 on 12/22/2022 by Dale Vazquez MD at [facility] Right: Hip DENNIS:ORTHOPED ICS [id number] 11/16/2027 702-04-52E / / [id number] Insert O Degree Trident X 3 36mm Code E - [id number] Implanted:Qty: 1 on 12/22/2022 by Dale Vazquez MD at [facility] Right: Hip DENNIS:ORTHOPED ICS [id number] 09/28/2027 723-00-36E / / [id number] Stem Sz6 45mm Ofst Accolade Ii Prim Recon Ti Plasm [employer] - [id number] Implanted:Qty: 1 on 12/22/2022 by Dale Vazquez MD at [facility] Right: Hip DENNIS:ORTHOPED ICS [id number] 11/22/2027 7562-4492 / / [id number] Head Fem V-40 36mm +0mm Nk Biolox Delta Cerm Tapr Prim Mod - [id number] Implanted:Qty: 1 on 12/22/2022 by Dale Vazquez MD at [facility] Right: Hip DENNIS:ORTHOPED ICS [id number] 07/01/2027 6570-0-136 / / [id number] Procedures Procedure Name Priority Date/Time Associated Diagnosis Comments [place] ARTHROCENTESIS ASPIR&/INJ MAJOR JT/BURSA W/O US Routine 09/28/2024 9:00 AM EDT Primary osteoarthritis of right knee from Last 3 Months Results * [place] ARTHROCENTESIS ASPIR&/INJ MAJOR JT/BURSA W/O US (09/28/2024 [...] to verify the correct patient, procedure, equipment, sales support administrator and site/side marked as required. Patient was prepped and draped in the usual sterile fashion. us Tiesha Saleem NP PROCEDURE/MINOR SURGICAL ORDERAB LES Final Result Performing Organization Address City/State/[facility] Co de Phone Number [facility] from Last 3 Months Insurance [facility] [place] [address] [facility] GENERIC WORKERS' COMP [place] PPO MEDICARE [place] PART A AND B [place] P[place] MEDICARE [place] PART A AND B Care Teams Um Nurse Relationship Specialty Start Date End Date Phan Rodgers MD [address] [facility] 204 [place] [id number] PCP - General 01/19/11 Francisco Bolton MD [address] [address] Internal Medicine-Rheumatolog y 02/20/18 Elen Taylor MD [address] [place] [address] Consulting Physician Internal Medicine-Endocrinolo gy, Diabetes & Metabolism 06/01/22
--- OUTSIDE RECORDS SUMMARY | 2024-11-15 16:20 | XMS_ITS | Encounter Summary ---
Author Organization [place] [address] Care Team Providers Care Braille Transcriber Name Role Phone Phan Rodgers MD Primary Care Provider [phone] Francisco Bolton MD Unavailable [phone] Elen Taylor MD Unavailable [phone] Reason for Visit * Reason Onset Date Comments Medication Refill 11/07/2024 Encounter Details Date Type Department Care Team (Late st Contact Info) Description 11/07/2024 Refill [facility] [address] [place] [address] Francisco Bolton MD 652 [facility] Building [address] [place] [address] Medication Refill Social History Tobacco Use Types Packs/Day Years [...] on file documented as of this encounter Miscellaneous Notes * Telephone Encounter - Louisa Tyson MA - 11/07/2024 3:31 PM EDT Spoke with patient an voiced he is good and is seeing the foot doctor regarding his toe. No refill needed. * Telephone Encounter - Francisco Bolton MD - 11/07/2024 3:24 PM EDT Please contact Mr. Chun. I prescribed the gentamicin topical while he was in the office recently to see if it would clear anarea of possible infection on his toe. However, I gave him instructions that if the area did not improve within about 1 week that he should see his medical records technician. I am now receiving a request for another prescription of gentamicin. Please see what is going on. If he still has the area of skin abnormality on his toe then I think he needs to see a medical records technician. * Telephone Encounter - Mj Perry MA - 11/07/2024 11:02 AM EDT [facility]- 10/08/2024 Labs- NEXT Follow up- 10/08/25 Chart reviewed. Rx last sent 10/08/24, last filled @ pharmacy 10/08/24 Per [facility] 10/08/24: Right foot cellulitis - Previously resolved with [...] 5-7 days he will return to podiatry. documented in this encounter Plan of Treatment Upcoming Encounters Date Type Department Care Team (Late st Contact Info) Description 01/04/2025 8:00 AM EDT Office Visit [facility] [address] [place] [address] Tiesha Saleem NP [address] [place] [address] 10/08/2025 8:00 AM EDT Office Visit [facility] [address] [facility] [address] [place], [place] [address] Francisco Bolton MD 651 [facility] Building [address] [place] [address] documented as of this encounter Visit Diagnoses Not on filedocumented in this encounter Care Teams Braille Transcriber Relationship Specialty Start Date End Date Phan Rodgers MD [address] [place] [address] PCP - General 01/19/11 Francisco Bolton MD 651 [facility] [address] [place] [address] Internal Medicine-Rheumatolog y 02/20/18 Elen Taylor MD [address] [place] [address] Consulting Physician Internal Medicine-Endocrinolo gy, Diabetes & Metabolism 06/01/22 documented as of this encounter
--- OUTSIDE RECORDS SUMMARY | 2024-11-15 16:20 | XMS_ITS | Clinical Summary ---
Author Organization [facility] Address [address] [place] [address] Care Team Providers Care Shearer Operator Name Role Phone Phan Rodgers MD Primary Care Provider [phone] Allergies Active Allergy Reactions Criticality Noted Date [...] Years) 06/09/202611/2016 Medical Devices Implanted Type Area Dental Equipment Repairer Device Identifier Shelf Expiration Date Model / Serial / Lot Attune Tib Base Afxm Fxd Bear Sz 7 - [id number] Implanted:Qty: 1 on 04/19/2024 by Giles Robledo MD at [facility] Left: Knee ESDRAS \T\ [employer] INC [id number] 05/04/2032 [id number] / / [id number] Attune Pat Med Estefany 35mm - [id number] Implanted:Qty: 1 on 04/19/2024 by Giles Robledo MD at [facility] Left: Knee ESDRAS \T\ [employer] [id number] 03/03/2029 [id number] / / [id number] Attune Fem Pcr Sz 7 Lt - [id number] Implanted:Qty: 1 on 04/19/2024 by Giles Robledo MD at [facility] Left: Knee EDSRAS \T\ [employer] [id number] 02/01/2034 [id number] / / [id number] Attune Tib Ins Fxd Bearing Med Stbld Sz 7 Lt 5mm - [id number] Implanted:Qty: 1 on 04/19/2024 by Giles Robledo MD at [facility] Left: Knee ESDRAS \T\ [employer] [id number] 01/02/2032 [id number] / / [id number] Cement Bone Simplex Hv - [id number] Implanted:Qty: 1 on 04/19/2024 by Giles Robledo MD at [facility] Left: Knee [employer] [id number] 09/01/2025 6194-1-010 / / [id number] Knee Attune Fb Cementless - [id number] Implanted:Qty: 1 on 04/19/2024 by Giles Robledo MD at [facility] Left: Knee ESDRAS \T\ [employer] [id number] / / Insurance [facility] MEDICARE Member Subscriber Plan / Payer (Ef fective 2022-Present) Name:Eusebio Ford Aidan Member ID:[id number] Relation to Subscriber:Self Name:Eusebio Ford Aidan Subscriber ID:[id number] Payer ID:[id number] Group ID:Not on file Type:Medicare Address: [facility] J15 PART A [facility] [place] [address] [place] [place] [address] Care Teams Shearer Operator Relationship Specialty Start Date End Date Phan Rodgers MD [address] [facility] [address] [place] [address] PCP - General Neurology 04/13/24
--- OUTSIDE RECORDS SUMMARY | 2024-11-15 16:20 | XMS_ITS | Encounter Summary ---
Author Organization [place] [address] Care Team Providers Care Lithographic Press Operator Name Role Phone Phan Rodgers MD Primary Care Provider Francisco Bolton MD Unavailable [phone] Elen Taylor MD Unavailable [phone] Reason for Visit * Reason Comments Medication Refill Encounter Details Date Type Department Care Team (Late st Contact Info) Description 11/01/2024 Refill [facility] [address] [place] [address] [address] [place] [address] Francisco Bolton MD 523 [facility] 19 [place] [address] Medication Refill Social History Tobacco Use [...] Telephone Encounter - Louisa Tyson MA - 11/01/2024 10:46 AM EDT [facility]- 10/08/2024 NEXT Follow up- 10/08/2024 documented in this encounter Plan of Treatment Upcoming Encounters Date Type Department Care Team (Late st Contact Info) Description 01/04/2025 8:00 AM EDT Office Visit [facility] [address] [place], [place] [address] Tiesha Saleem NP [address] [place] [address] 10/08/2025 8:00 AM EDT Office Visit [facility] [address] [facility] [address] [place], [place] [address] Francisco Bolton MD 651 [facility] 19 [place], [place] [address] documented as of this encounter Visit Diagnoses Not on filedocumented in this encounter Care Teams Lithographic Press Operator Relationship Specialty Start Date End Date Phan Rodgers MD 2101 [facility] [address] [place] [address] PCP - General 01/19/11 Francisco Bolton MD 651 [facility] [address] [place] [address] Internal Medicine-Rheumatolog y 02/20/18 Elen Taylor MD [address] [place] [address] Consulting Physician Internal Medicine-Endocrinolo gy, Diabetes & Metabolism 06/01/22 documented as of this encounter
[2024-11-15 17:19] LABS: Hematocrit 45.1 % (42.0-52.0); Hemoglobin 14.5 g/dL (14.1-18.0); Immature Granulocytes % 0.2 %; Mean Corpuscular HGB Conc 32.2 g/dL (31.8-35.4); Mean Corpuscular Hemoglobin 27.9 pg (27.0-31.2); Mean Corpuscular Volume 86.7 fl (80-94); Nucleated Red Blood Cells % 0 %; Platelet Count 280 K/mm3 (142-424); Red Blood Count 5.20 M/mm3 (4.60-6.20); Red Cell Distribution Width-SD 46.4 fL; White Blood Count 8.0 K/mm3 (4.8-10.8)
[2024-11-15 18:09] LABS: Alanine Aminotransferase 26 U/L (12-78); Albumin Level 3.9 g/dl (3.5-5.0); Albumin/Globulin Ratio 1.6 (1.1-1.8); Alkaline Phosphatase 85 U/L (38-126); Anion Gap 6.7 mEq/L (5-15); Aspartate Amino Transferase 29 U/L (17-59); Bilirubin,Total 0.4 mg/dl (0.2-1.3); Blood Urea Nitrogen 19 mg/dl (9-20); Calcium 8.7 mg/dl (8.4-10.2); Carbon Dioxide 32 mmol/L (22.0-30.0); Chloride 102 mmol/L (98-107); Creatinine,Serum 0.70 mg/dl (0.66-1.25); Estimated Glomerular Filt Rate 112 ml/min (>60); GFR (African American) 136 ML/MIN (>60); Globulin 2.5 g/dL (1.3-3.2); Glucose 84 mg/dl (74-100); Potassium 3.7 mmoL/L (3.5-5.1); Sodium 137 mmol/L (136-145); Total Protein,Serum 6.4 g/dl (6.3-8.2)
[2024-11-15 18:16] LABS: C-Reactive Protein 15.9 mg/L (0-4)
[2024-11-15 20:43] LABS: Hemoglobin A1C 6.0 % (4.0-6.0)
== END 2024-11-15 23:59 | disposition home or self-care (01) ==
PROVIDERS: PCP Nurse Practitioner; Visit Provider Nurse Practitioner
DX: E11.9 Type 2 diabetes mellitus without complications (principal); L03.031 Cellulitis of right toe; L03.115 Cellulitis of right lower limb
CPT/HCPCS: 36415; 80053; 83036; 85025; 85651; 86140

== ENCOUNTER 2025-04-02 15:58 | Outpatient (CLI) | payer BC, MEDICARE, SELFPAY ==
--- OUTSIDE RECORDS SUMMARY | 2025-04-03 09:14 | XMS_ITS | Clinical Summary ---
Author Organization [facility] Address [address] [place] [address] Care Team Providers Care Control Room Tender Name Role Phone Phan Rodgers MD Primary Care Provider [phone] Allergies Active Allergy Reactions Criticality Noted Date [...] Screening 1957 FIT 1957 Lipid Monitoring 1974 Pneumococcal Vaccine: 50+ Ye ars (1 of 2 - PCV) 1976 Hepatitis C Virus (HCV) Screening 1978 RSV Vaccines (1 - Risk 50-74 years 1-dose series) 07/16/2007 Zoster-RZV(Shingrix) (1 of 2) 07/16/2007 Fall Risk Assessment 2022 Advance Care Planning 04/04/2024 BMI Counseling 04/04/2024 Depression Screening 04/04/2024 COVID-19 Vaccine ( - season) 2024, 12/02/2020 Influenza Vaccination (#1) 2024 Tetanus Vaccination (Every 10 Years) 06/09/202611/2016 Medical Devices Implanted Type Area Linoleum Mechanic Device Identifier Shelf Expiration Date Model / Serial / Lot Attune Tib Base Afxm Fxd Bear Sz 7 - [id number] Implanted:Qty: 1 on 04/19/2024 by Giles Robledo MD at [facility] Left: Knee ESDRAS \T\ [employer] INC [id number] 05/04/2032 [id number] / / [id number] Attune Pat Med Estefany 35mm - [id number] Implanted:Qty: 1 on 04/19/2024 by Giles Robledo MD at [facility] Left: Knee ESDRAS \T\ [employer] [id number] 03/03/2029 [id number] / / [id number] Attune Fem Pcr Sz 7 Lt - [id number] Implanted:Qty: 1 on 04/19/2024 by Giles Robledo MD at [facility] Left: Knee ESDRAS \T\ [employer] [id number] 02/01/2034 [id number] / / [id number] Attune Tib Ins Fxd Bearing Med Stbld Sz 7 Lt 5mm - [id number] Implanted:Qty: 1 on 04/19/2024 by Giles Robledo MD at [facility] Left: Knee ESDRAS \T\ [employer] INC [id number] 01/02/2032 [id number] / / [id number] Cement Bone Simplex Hv - [id number] Implanted:Qty: 1 on 04/19/2024 by Giles Robledo MD at [facility] Left: Knee [employer] [id number] 09/01/2025 6194-1-010 / / [id number] Knee Attune Fb Cementless - [id number] Implanted:Qty: 1 on 04/19/2024 by Giles Robledo MD at [facility] Left: Knee ESDRAS \T\ [employer] [id number] / / Insurance [facility] MEDICARE Member Subscriber Plan / Payer (Ef fective 2022-Present) Name:Eusebio Ford Aidan Member ID:[id number] Relation to Subscriber:Self Name:Eusebio Ford Aidan Subscriber ID:[id number] Payer ID:[id number] Group ID:Not on file Type:Medicare Address: [facility] J15 PART A [facility] [place] [address] [place] [address] Care Teams Control Room Tender Relationship Specialty Start Date End Date Phan Rodgers MD [address] [facility] 204 [place] [address] PCP - General Neurology 04/13/24
--- OUTSIDE RECORDS SUMMARY | 2025-04-03 09:14 | XMS_ITS | Clinical Summary ---
Author Organization [facility] Address [address] [place] [address] Phone Care Team Providers Care Paraprofessional Aide Teacher Name Role Phone Phan Rodgers MD Primary Care Provider [phone] Francisco Bolton MD Unavailable [phone] Elen Taylor MD Unavailable [phone] Allergies Active Allergy Reactions Criticality Noted Date [...] (10/27/2022): Added automatically from request for surgery [id number] Prediabetes 06/01/2022 Assessment & Plan (11/09/2022 12:44 [...] (12/31/2021): Added automatically from request for surgery [id number] Radicular pain of lumbosacral region 12/10/2021 Primary [...] Encounters Date Type Department Care Team Description 01/04/2025 8:00 AM EDT Office Visit [facility] [address] [facility] [address] [place] [address] Tiesha Saleem NP Primary osteoarthritis of right knee (Primary Dx) from Last 3 Months Immunizations Immunization Administration Dates Next Due Tdap 06/09/2016 Surgical History Surgery Date Site/Laterality Comments FINGER AMPUTATION 06/15/2016 Finger/Left LEFT LONG FINGER REPAIR AMPUTATION WITH V-Y FLAP; Surgeon: Josue Tejada MD; Location: [facility]; Service: Hand SKIN GRAFT 06/15/2016 Finger/Left Surgeon: Josue Tejada MD; Location: [facility]; Service: Hand FINGER NAIL SURGERY 09/23/2016 Left LEFT LONG FINGER EXCISION OF THE NAIL AND NAILBED REMNANT; Surgeon: Josue Tejada MD; Location: [facility]; Service: Hand FINGER FRACTURE SURGERY 01/05/2022 Hand/Wrist/Left left thumb exploration irrigation and debridement of open fracture open reduction internal fixation distal phalanx; Surgeon: Antelmo Stock MD; Location: [facility] MAIN OR; Service: Hand Medical devices from this surgery are in the Medical Devices section. HIP ARTHROPLASTY 12/22/2022 Hip/Right RIGHT TOTAL HIP REPLACEMENT; Surgeon: Dale Vazquez MD; Location: [facility] MAIN OR; Service: Orthopedics Medical devices from [...] on file Sexual Orientation Not on file Last Filed [...] Care Team (Late st Contact Info) Description 04/25/2025 8:45 AM EST Office Visit [facility] [address] [address] Tiesha Saleem NP 2626 [place] [address] 10/08/2025 8:00 AM EDT Office Visit [facility] 7370 [facility] [address] [place] [address] Francisco Bolton MD [address] [address] Health Maintenance Due Date Last Done Comments Annual Wellness Exam 1960 Hepatitis C Screening 07/16/1975 Cologuard 2002 Colon Cancer Screening 2002 Colonoscopy 2002 FIT 2002 Sigmoidoscopy 2002 Virtual Colonography 2002 RSV or 60+ (1 - Ris k 50-74 years 1-dose series) 07/16/2007 Zoster (1 of 2) 07/16/2007 Pneumococcal Vaccine 50+ (2 of 2 - PCV) 11/22/2018 11/22/2017 AAA Screening 2022 COVID-19 Vaccine (3 - 2024-2 6 season) 2024 12/30/2020, 12/02/2020 Influenza Vaccine (#1) 2024 DTaP/TDaP/Td (2 - Td or Tdap) 06/09/2026 06/09/2016 Hepatitis B Vaccine Aged Out No longe r eligible based on patient's age to complete this topic Meningococcal B Vaccine Aged Out No l onger eligible based on patient's age to complete this topic Medical Devices Implanted Type Area Vehicle And Equipment Cleaner Device Identifier Shelf Expiration Date Model / Serial / Lot Wire David 0.872coo6.5in Microaire Smth Dbl End Troc Pnt - [id number] Implanted:Qty: 2 on 01/05/2022 by Antelmo Stock MD at [facility] MICROAIRE SURG INSTR 05/30/2025 1600-022 / / [id number] Cup Actb Trident Ii Sz-E 52mm Clstr Scr 5hl Tritan Hap Prim - [id number] Implanted:Qty: 1 on 12/22/2022 by Dale Vazquez MD at [facility] Right: Hip DENNIS:ORTHOPED ICS [id number] 11/16/2027 702-04-52E / / [id number] Insert O Degree Trident X 3 36mm Code E - [id number] Implanted:Qty: 1 on 12/22/2022 by Dale Vazquez MD at [facility] Right: Hip DENNIS:ORTHOPED ICS [id number] 09/28/2027 723-00-36E / / [id number] Stem Sz6 45mm Ofst Accolade Ii Prim Recon Ti Plasm [employer] - [id number] Implanted:Qty: 1 on 12/22/2022 by Dale Vazquez MD at [facility] Right: Hip DENNIS:ORTHOPED ICS [id number] 11/22/2027 0717-6308 / / [id number] Head Fem V-40 36mm +0mm Nk Biolox Delta Cerm Tapr Prim Mod - [id number] Implanted:Qty: 1 on 12/22/2022 by Dale Vazquez MD at [facility] Right: Hip DENNIS:ORTHOPED ICS [id number] 07/01/2027 6570-0-136 / / [id number] Procedures Procedure Name Priority Date/Time Associated Diagnosis Comments [place] ARTHROCENTESIS ASPIR&/INJ MAJOR JT/BURSA W/O US Routine 01/04/2025 8:00 AM EDT Primary osteoarthritis of right knee from Last 3 Months Results * [place] ARTHROCENTESIS ASPIR&/INJ MAJOR JT/BURSA W/O US (01/04/2025 8:00 AM EDT) Narrative [facility] - 01/04/2025 8:00 AM EDT Tiesha Saleem NP 01/04/2025 11:09 AM Large Joint Injection/Arthrocentesis: R knee on 01/04/2025 8:00 AM Indications: pain Details: 22 G needle, superolateral approach Medications: 2 mL BUPivacaine HCl 0.5 % (5 mg/mL); 40 mg triamcinolone acetonide 40 mg/mL Outcome: tolerated well, no immediate complications Procedure, treatment alternatives, risks and benefits explained, specific risks discussed. Consent was given by the patient. Immediately prior to procedure a time out was called to verify the correct patient, procedure, equipment, software support technician and site/side marked as required. Patient was prepped and draped in the usual sterile fashion. us Tiesha Saleem NP PROCEDURE/MINOR SURGICAL ORDERAB LES Final Result [facility] Last 3 Months Insurance [employer] PPO MEDICARE [place] PART A AND B NURSE PRACTITIONER [facility] WORKERS' COMP ANTH PPO MEDICARE [place] PART A AND B ANTH PPO MEDICARE [place] PART A AND B Member Subscriber Plan / Payer (Ef fective 2022-) Name:Eusebio Ford Member ID:[id number] Relation to Subscriber:Self Name:Eusebio Ford Subscriber ID:[id number] Payer ID:Not on file Group ID:Not on file Type:Not on file Address: [address] [place] [phone] Care Teams Paraprofessional Aide Teacher Relationship Specialty Start Date End Date Phan Rodgers MD [address] [facility] [address] [place] [id number] PCP - General 01/19/11 Francisco Bolton MD 651 [place] [address] Internal Medicine-Rheumatolog y 02/20/18 Elen Taylor MD [address] [place] [address] Consulting Physician Internal Medicine-Endocrinolo gy, Diabetes & Metabolism 06/01/22
== END 2025-04-02 23:59 | disposition home or self-care (01) ==
LOC: LAB.DROPOF 04-03 09:11
PROVIDERS: PCP Nurse Practitioner; Visit Provider Nurse Practitioner
DX: E11.621 Type 2 diabetes mellitus with foot ulcer (principal); L97.519 Non-pressure chronic ulcer of other part of right foot with unspecified severity
CPT/HCPCS: 87070; 87077; 87186; 87205